=== PATIENT | female | born 1965 | race Caucasian/White ===

== ENCOUNTER 2016-11-30 09:03 | Observation (INO) ==
[2016-11-30] MEDS ORDERED: Ondansetron 4 MG/2 ML VIAL IVP ONE ×2 (09:17→11:13)
[2016-11-30] MEDS ORDERED: 0.9 % Sodium Chloride 1,000 ML IVC ONE (09:17)
[2016-11-30 09:50] LABS: Basophils % 0.2 %; Hematocrit 48.6 % (35.3-44.9); Hemoglobin 16.3 g/dL (11.5-15.4); Immature Granulocytes % 0.3 % (0-4); Lymphocytes # 1.1 K/mcL (0.6-4.6); Mean Corpuscular HGB Conc 33.5 g/dL (31.6-35.5); Mean Corpuscular Hemoglobin 31.2 pg (28.0-33.3); Mean Corpuscular Volume 92.9 fL (83.0-100.0); Monocytes # 0.2 K/mcL (0.0-1.3); Monocytes % 1.6 %; Neutrophils # 11.1 K/mcL (1.6-8.9); Platelet Count 393 K/mcL (140-400); Red Blood Count 5.23 M/mcL (3.82-4.97); Red Cell Distribution Width 14.2 % (11.5-14.5); Segmented Neutrophils % 88.9 %
[2016-11-30 10:51] LABS: Alanine Aminotransferase 44 Units/L (0-55); Albumin 3.4 g/dL (3.5-5.0); Albumin/Globulin Ratio 0.7 (1.1-2.2); Alkaline Phosphatase 117 Units/L (38-126); Amylase 52 Units/L (25-125); Aspartate Amino Transferase 32 Units/L (5-34); BUN/Creatinine Ratio 30 (6-26); Bilirubin,Direct 0.3 mg/dL (0.0-0.5); Bilirubin,Indirect 0.7 mg/dL (0.0-1.2); Blood Urea Nitrogen 25 mg/dL (7-20); Calcium 9.9 mg/dL (8.6-10.8); Carbon Dioxide 29 mEq/L (19-29); Chloride 100 mEq/L (98-109); Glucose 216 mg/dL (70-99); Lipase < 10 Units/L (8-78); Osmolality,Calculated 297 (280-300); Sodium 138 mEq/L (136-145); Total Protein 8.4 g/dL (6.0-8.3); eGFR For African Americans > 60 (> 60); eGFR For Non-African Americans > 60 (> 60)
[2016-11-30 10:52] LABS: Potassium 4.3 mEq/L (3.5-4.5)
[2016-11-30] MEDS ORDERED: Piperacillin/Tazobactam 3.375 GM in D5% in Water (Mini-Bag+) 100 ML IVPB ONE (10:55)
--- NOTE | 2016-11-30 10:59 | Emergency Department Note ---
Disposition Clinical Impression: Enteritis, Nausea vomiting and diarrhea Abdominal pain Qualifiers: Abdominal location: generalized Qualified Code(s): R10.84 - Generalized abdominal pain Acute appendicitis Qualifiers: Acute appendicitis type: unspecified acute appendicitis type Qualified Code(s) : K35.80 - Unspecified acute appendicitis Disposition: Admitted As Inpatient Condition: Good Referrals: NO,PCP [Non-Partnered Physician] - Forms: Work/School Release, ED Satisfaction Letter Time of Disposition: 12:00 Abdominal Pain HPI - General Chief Complaint: ED Abdominal Pain Stated Complaint: abd pain Time Seen by Provider: 11/30/16 09:07 Source: EMS Mode of arrival: ambulatory Limitations: no limitations Nursing Notes Reviewed: Yes Vital Signs Reviewed: Yes - History of Present Illness HPI Narrative: Patient presents emergency room by EMS for evaluation of nausea vomiting and abdominal pain. Symptoms of them present for several days. Finally got so bad that she decided to come the emergency room for evaluation. Pt Subjective Complaint: abdominal pain Onset (ago): day(s) Consistency: constant Location: diffuse Pain Severity: moderate Pain Scale: 8 Quality: stabbing, aching Migration to: no migration Improves with: nothing Worsens with: eating, movement Associated symptoms: Reports: nausea, vomiting, diarrhea, chills Treatments prior to arrival: none - Related Data Previous Rx's Medication Instructions Recorded Omeprazole [PriLOSEC] 40 mg PO DAILY 30 Days 02/19/16 Sucralfate [Carafate] 1 gm PO QIDAC 30 Days 02/19/16 Allergies Allergy/AdvReac Type Severity Reaction Status Date / Time No Known Allergies Allergy Verified 02/20/16 09:28 All systems ED: reviewed and negative except as stated. Constitutional: Reports: chills. Denies: fever, weakness Cardiovascular: Denies: chest pain, palpitations, dyspnea on exertion, orthopnea Respiratory: Denies: dyspnea, wheezes Gastrointestinal: Reports: abdominal pain, nausea, vomiting, diarrhea. Denies: constipation Genitourinary: Denies: dysuria, frequency Musculoskeletal: Denies: back pain, neck pain Neurological: Denies: headache Abdominal Pain PMH - Past Medical History Medical history: Reports: cancer, other Female Surgical History: Reports: splenectomy, other Psychiatric history: Reports: anxiety, bipolar, depression - Social History Smoking status: Former smoker Alcohol use: Reports: none Drug use: Reports: none Physical Exam - General Limitations: no limitations General appearance: alert - Head Head exam: atraumatic, normocephalic, normal inspection - Neck Neck exam: Present: normal inspection, full ROM, trachea midline. Absent: tenderness - Chest Chest inspection: Present: normal inspection, symmetric chest wall rise. Absent : tenderness - Respiratory Respiratory exam: Present: normal lung sounds bilaterally - Cardiovascular Cardiovascular exam: Present: regular rate, normal rhythm, normal heart sounds - Abdominal Exam Abdominal exam: Present: soft, tenderness, normal bowel sounds. Absent: distention, guarding, rebound, rigidity, Sawant's sign, Rovsing's sign, tenderness at McBurney's Point - Extremities Exam Extremities exam: Present: normal inspection, full ROM, normal capillary refill. Absent: tenderness - Back Exam Back exam: Present: normal inspection - Neurological Exam Neurological exam: Present: alert, oriented X3, CN II-XII intact, normal gait - Skin Skin exam: Present: warm, dry, intact, normal color Course Course Narrative: Patient seen and examined the time of arrival. See history of present illness. 51-year-old female presents to emergency room by EMS for evaluation of abdominal pain. She has had nausea vomiting and discomfort in her abdomen for 3 days. She denies any changes in her medications or trauma. She denies fevers but has had intermittent chills. She denies any sick contacts or travel outside the country. She denies any blood in her stool or in her urine. Vital signs reviewed and are stable on presentation patient is afebrile. On evaluation patient has her knees pulled up to her chest bed. She answers questions appropriately. She takes pain medication home secondary to back pain and chest wall pain from lung cancer previously in the past. Patient denies any other specific medical history. On my physical exam pupils are equal round reactive to light. Extraocular muscles are intact oropharynx is patent trachea is midline. Patient has clear lungs heart that is regular abdomen is soft but tenderness noted diffusely. Main area of guarding is in the upper epigastrium and then in the lower suprapubic region of the abdomen. Patient denies any burning with urination or blood in her urine. Patient says that she has had intermittent abdominal pain in the past but does not know why. She has not had any abdominal surgeries except for splenectomy but that was done in 1990. Patient has normal-appearing extremities pulses are intact. On evaluation patient is concerning [place] abdominal pathology including pancreatitis gallbladder related issues or abdominal related pathology including inflammation appendicitis or diverticulitis. Patient had CT imaging of the abdomen urinalysis as well as fluids nausea medication pain to be controlled. We will also evaluate the labs here in the emergency room addressing liver function and kidney function. Patient understands this plan she is resting in the bed at this time we will continue to monitor treatment course is completed - Reevaluation(s) Reevaluation #1: Patient found by CT scan to have what appears to be enteritis with possible distal tip appendicitis. She does have a mild white blood cell count but has been having episodes of emesis. Otherwise no other significant lab abnormalities noted at this time. Her urinalysis is still pending. Fluids and pain medication to be provided. Consultation placed to the on-call surgeon based on the CT imaging results. I discussed the findings with Dr. Mena. We reviewed the patient's presentation symptoms and medical intervention. He will come to evaluate the patient in the emergency room to determine disposition. Otherwise no other recommendations at this time. I will continue to monitor here and control pain and provide fluids as needed. Patient is otherwise resting in the bed at this time with disposition to be determined once evaluation is completed. Time: 11:16 Reevaluation #2: Surgeon at the bedside for evaluation. Recommend hospital admission for IV antibiotics and pain control nonsurgical case at this time. He will follow along as needed. Hospitalist paged at this time for admission process.. Detailed review the presentation symptoms and medical intervention were discussed with the hospitalist Dr. Cat. No other recommendations from them at this time. Patient will follow hospital for symptom control it appears to be inflammatory enteritis and uncontrollable nausea vomiting abdominal pain. We will continue to monitor here in the emergency room and to the admission process is completed Time: 12:00 Vital Signs Temperature 98.6 F 11/30/16 09:04 Pulse Rate 62 11/30/16 09:04 Respiratory Rate 18 11/30/16 09:04 Blood Pressure 173/99 11/30/16 09:04 O2 Sat by Pulse Oximetry 97 11/30/16 09:04 Temperature 98.6 F 11/30/16 09:04 Pulse Rate 57 11/30/16 11:43 Respiratory Rate 18 11/30/16 11:43 Blood Pressure 156/79 11/30/16 11:43 O2 Sat by Pulse Oximetry 98 11/30/16 11:43 Oxygen Delivery Oxygen Delivery Room Air Abdominal Pain - MDM Narrative Medical decision making narrative: Abdominal pain, enteritis, possible appendicitis, nausea vomiting diarrhea - Medical Records Medical records reviewed: Yes I reviewed the patient's medical records. - Lab Data Lab results reviewed: Yes I reviewed the patient's lab results. Result diagrams: 11/30/16 09:37 11/30/16 10:27 Lab Results 11/30/16 11/30/16 11/30/16 Range/Units 09:37 09:37 09:37 WBC 12.5 H (4.3-11.1) K/mcL RBC 5.23 H (3.82-4.97) M/mcL Hgb 16.3 H (11.5-15.4) g/dL Hct 48.6 H (35.3-44.9) % MCV 92.9 (83.0-100.0) fL MCH 31.2 (28.0-33.3) pg MCHC 33.5 (31.6-35.5) g/dL RDW 14.2 (11.5-14.5) % Plt Count 393 (140-400) K/mcL MPV 10.0 (9.4-12.4) fL Immature Gran % 0.3 (0-4) % Seg Neutrophils % 88.9 % Lymphocytes % 9.0 % Monocytes % 1.6 % Eosinophils % 0.0 % Basophils % 0.2 % Neutrophils # 11.1 H (1.6-8.9) K/mcL Lymphocytes # 1.1 (0.6-4.6) K/mcL Monocytes # 0.2 (0.0-1.3) K/mcL Eosinophils # 0.0 (0.0-0.6) K/mcL Basophils # 0.0 (0.0-0.2) K/mcL Sodium (136-145) mEq/L Potassium (3.5-4.5) mEq/L Chloride (98-109) mEq/L Carbon Dioxide (19-29) mEq/L BUN (7-20) mg/dL Creatinine (0.57-1.11) mg/dL Est GFR ( Amer) (> 60) Est GFR (Non-Af Amer) (> 60) BUN/Creatinine Ratio (6-26) Glucose (70-99) mg/dL Calculated Osmolality (280-300) Calcium (8.6-10.8) mg/dL Total Bilirubin (0.2-1.2) mg/dL Direct Bilirubin (0.0-0.5) mg/dL Indirect Bilirubin (0.0-1.2) mg/dL AST (5-34) Units/L ALT (0-55) Units/L Alkaline Phosphatase (38-126) Units/L Troponin I 0.01 (0-0.03) ng/mL Serum Total Protein (6.0-8.3) g/dL Albumin (3.5-5.0) g/dL Globulin (2.4-3.5) g/dL Albumin/Globulin Ratio (1.1-2.2) Amylase (25-125) Units/L Lipase (8-78) Units/L Specimen Rejected Hemolyzed 11/30/16 Range/Units 10:27 WBC (4.3-11.1) K/mcL RBC (3.82-4.97) M/mcL Hgb (11.5-15.4) g/dL Hct (35.3-44.9) % MCV (83.0-100.0) fL MCH (28.0-33.3) pg MCHC (31.6-35.5) g/dL RDW (11.5-14.5) % Plt Count (140-400) K/mcL MPV (9.4-12.4) fL Immature Gran % (0-4) % Seg Neutrophils % % Lymphocytes % % Monocytes % % Eosinophils % % Basophils % % Neutrophils # (1.6-8.9) K/mcL Lymphocytes # (0.6-4.6) K/mcL Monocytes # (0.0-1.3) K/mcL Eosinophils # (0.0-0.6) K/mcL Basophils # (0.0-0.2) K/mcL Sodium 138 (136-145) mEq/L Potassium 4.3 (3.5-4.5) mEq/L Chloride 100 (98-109) mEq/L Carbon Dioxide 29 (19-29) mEq/L BUN 25 H (7-20) mg/dL Creatinine 0.84 (0.57-1.11) mg/dL Est GFR ( Amer) > 60 (> 60) Est GFR (Non-Af Amer) > 60 (> 60) BUN/Creatinine Ratio 30 H (6-26) Glucose 216 H (70-99) mg/dL Calculated Osmolality 297 (280-300) Calcium 9.9 (8.6-10.8) mg/dL Total Bilirubin 1.0 (0.2-1.2) mg/dL Direct Bilirubin 0.3 (0.0-0.5) mg/dL Indirect Bilirubin 0.7 (0.0-1.2) mg/dL AST 32 (5-34) Units/L ALT 44 (0-55) Units/L Alkaline Phosphatase 117 (38-126) Units/L Troponin I (0-0.03) ng/mL Serum Total Protein 8.4 H (6.0-8.3) g/dL Albumin 3.4 L (3.5-5.0) g/dL Globulin 5.0 H (2.4-3.5) g/dL Albumin/Globulin Ratio 0.7 L (1.1-2.2) Amylase 52 (25-125) Units/L Lipase < 10 (8-78) Units/L Specimen Rejected - Radiology Data Radiology results reviewed: Yes I reviewed the patient's radiology results. CT imaging is concerning for enteritis as well as possible appendicitis
[2016-11-30] MEDS ORDERED: *HR* HYDROmorphone (PF) 1 MG/ML SYRINGE IVP ONE ×2 (11:13→13:12)
[2016-11-30] MEDS ORDERED: *HR* Promethazine 25 MG/ML VIAL IVP PRN (13:11)
[2016-11-30] MEDS ORDERED: Ondansetron 4 MG/2 ML VIAL IVP PRN (13:11)
[2016-11-30] MEDS ORDERED: Naloxone 0.4 MG/ML INJ IVP PRN (13:11)
[2016-11-30] MEDS ORDERED: *HR* HYDROmorphone (PF) 1 MG/ML SYRINGE ONE (13:13)
[2016-11-30] MEDS ORDERED: *HR* LORazepam 2 MG/ML VIAL IVP PRN (13:16)
--- NOTE | 2016-11-30 13:22 | Internal Med History&Physical ---
Date of Encounter: 11/30/16 Time of Encounter: 13:19 Assessment and Plan (1) Abdominal pain Current visit: Yes Status: Acute Patient reporting 3 day history of abdominal pain, nausea and vomiting. CT of abdomen showed enteritis. Dr. Mena was consulted, examined the patient and reviewed images and felt this was consistent with enteritis. Dilaudid for abdominal pain Narcan PRN for respiratory depression NPO except ice chips Qualifiers: Abdominal location: generalized Qualified Code(s): R10.84 - Generalized abdominal pain (2) Enteritis Current visit: Yes Status: Acute Patient reporting 3 day history of abdominal pain, nausea and vomiting. CT of abdomen showed enteritis. Dr. Mena was consulted, examined the patient and reviewed images and felt this was consistent with enteritis. NPO except ice chips IV fluids 0.9NS at 125mL/hr Cipro and Flagyl Zofran and phenergan for nausea and vomiting Dilaudid for abdominal pain consider endoscopy as an outpatient to evaluate for inflammatory bowel disease (3) Nausea vomiting and diarrhea Current visit: Yes Status: Acute Patient reporting 3 day history of abdominal pain, nausea and vomiting. CT of abdomen showed enteritis. Dr. Mena was consulted, examined the patient and reviewed images and felt this was consistent with enteritis. IV fluids 0.9NS at 125mL/hr Zofran and phenergan for nausea and vomiting (4) History of lung cancer Current visit: Yes Status: Acute Patient with history of lung cancer s/p right lobectomy, chemo and radiation. Patient follows regularly with Dr. Blanchard at the [facility]. (5) Anxiety Current visit: Yes Status: Acute Ativan 1mg IVP TID (6) Smoker Current visit: Yes Status: Acute Patient continues to smoke 1PPD despite previous lung cancer. Encouraged smoking cessation. Smoking cessation education and nicotine patch ordered. (7) DVT prophylaxis Current visit: Yes Status: Acute anti-embolic stockings Lovenox 40mg SQ daily Internal Medicine - H&P: HPI Chief complaint: abd pain, N/V Admitted From: Emergency Dept Plans for Post Hospital Care: Home History of present illness: Ms. Hoskins is a 51 year old female with history of lung cancer status post lobectomy chemoradiation on remission, seizure disorder, no longer on treatment , anxiety, bipolar disorder presented to the emergency department today with 3 day history of abdominal pain nausea vomiting diarrhea. Patient reports symptoms started suddenly 3 days ago and have not improved. She reports she is unable to keep anything down. Vomiting is nonbloody, diarrhea is nonbloody. Abdominal pain is described as constant severe in the right lower quadrant, worse with palpation and vomiting. She also describes chills and sweats as well as body aches. She denies any headache, lightheadedness, chest pain, palpitations, shortness breath or coughing. Evaluation emergency department revealed mildly elevated white blood cell count of 12.5. Chest x-ray showed no acute abnormality. CT of the abdomen showed enteritis with possible distal tip appendicitis. Dr. Holliday of surgery was consulted, who felt this is nonsurgical at this time and recommended antibiotics and IV fluids and he will continue to follow. On exam, patient alert and oriented, mildly distressed, tearful, complaining of nausea and abdominal pain. Lungs are clear bilaterally to auscultation heart is regular rate and rhythm. Abdomen is diffusely tender more so in the right lower quadrant rebound tenderness. Past Med Surg Social Fam HX - Past Medical History Medical history: cancer (lung cancer s/p right lobectomy, chemo and radiation), seizures, other Psychiatric history: anxiety, bipolar, depression - Past Surgical History Surgical History: , cancer surgery (right lobectomy), splenectomy - Social History Smoking Status: Current every day smoker Packs per day: 1 Smokeless Tobacco Status: No Alcohol use: none Drug use: none - Family History Father Living Status: Age at : 47 Cause of : Cirrhosis Mother Living Status: Age at : 72 Hx Family Cancer: Yes Hx Family Endocrine Disorder: Yes (diabetes) Internal Medicine - H&P: Meds ALPRAZolam [Xanax 1 MG Tablet] 1 mg PO BID PRN 11/30/16 [History] Gabapentin [Neurontin] 800 mg PO TID 11/30/16 [History] Oxycodone HCl/Acetaminophen [Percocet 7.5-325 mg Tablet] 1 tab PO TID PRN [History] Quetiapine Fumarate [Seroquel] 200 mg PO HS 11/30/16 [History] Allergies No Known Allergies Allergy (Verified 02/20/16 09:28) All Systems PM: A 10-system review of systems was performed and is negative for pertinent findings except as documented above in the HPI. - Constitutional Constitutional: anorexia, chills, malaise, night sweats, no fever(s) - EENT Eyes: no change in vision, no discharge, no pain, no photophobia Ears: no ear discharge, no ear pain, no tinnitus Nose, mouth and throat: no dysphagia, no nasal discharge, no neck pain, no sore throat - Cardiovascular Cardiovascular ROS IM: no chest pain, no diaphoresis, no dyspnea, no lightheadedness, no palpitations, no syncope - Respiratory Respiratory: no cough, no dyspnea, no wheezing, no excessive phlegm production - Gastrointestinal Gastrointestinal: abdominal pain, diarrhea, nausea, vomiting, no hematemesis, no hematochezia, no melena - Genitourinary Genitourinary: no change in urinary stream, no dysuria, no flank pain, no hematuria - Musculoskeletal Musculoskeletal ROS IM: no numbness, no tingling - Integumentary Integumentary IM: no rash, no unusual bruising - Neurological Neurological ROS: no confusion, no convulsions, no focal weakness, no numbness, no tingling, no tremor(s) - Hematologic/Lymphatic Hematologic/Lymphatic: no easy bruising - Constitutional Vitals: Temp Pulse Resp BP Pulse Ox 98.6 F 57 18 142/83 98 11/30/16 09:04 11/30/16 11:43 11/30/16 12:44 11/30/16 12:44 11/30/16 11:43 General appearance: Present: mild distress, A&O X 3 - Head Head exam: Present: atraumatic, normocephalic - Eye Eye exam: Present: PERRL, conjuntiva pink, sclera anicteric Pupils: Present: PERRL - ENT ENT exam: Present: mucous membranes dry - Neck Neck exam general surgery: Present: supple, trachea midline. Absent: lymphadenopathy - Respiratory Respiratory exam: Present: CTAB. Absent: accessory muscle use, rales, rhonchi, wheezes - Cardiovascular Cardiovascular exam: Present: RRR, +S1, +S2. Absent: diastolic murmur, gallop, rubs, systolic murmur - GI/Abdominal GI/Abdominal exam: Present: normal bowel sounds, soft, tenderness, no peritoneal signs. Absent: distended - Extremities Exam Extremities exam: Present: warm, radial pulses palpable and symetrical. Absent : calf tenderness, cyanotic, pedal edema - Neurological Exam Neurological exam: Present: CN II-XII intact, oriented X3, no focal deficits. Absent: facial droop, speech deficit - Skin Skin exam: Present: dry, intact Internal Med - H&P Results - Labs CBC & Chem 7: 11/30/16 09:37 11/30/16 10:27 Labs: All Lab Results (24 Hours) 11/30/16 11/30/16 11/30/16 Range/Units 09:37 09:37 09:37 WBC 12.5 H (4.3-11.1) K/mcL RBC 5.23 H (3.82-4.97) M/mcL Hgb 16.3 H (11.5-15.4) g/dL Hct 48.6 H (35.3-44.9) % MCV 92.9 (83.0-100.0) fL MCH 31.2 (28.0-33.3) pg MCHC 33.5 (31.6-35.5) g/dL RDW 14.2 (11.5-14.5) % Plt Count 393 (140-400) K/mcL MPV 10.0 (9.4-12.4) fL Immature Gran % 0.3 (0-4) % Seg Neutrophils % 88.9 % Lymphocytes % 9.0 % Monocytes % 1.6 % Eosinophils % 0.0 % Basophils % 0.2 % Neutrophils # 11.1 H (1.6-8.9) K/mcL Lymphocytes # 1.1 (0.6-4.6) K/mcL Monocytes # 0.2 (0.0-1.3) K/mcL Eosinophils # 0.0 (0.0-0.6) K/mcL Basophils # 0.0 (0.0-0.2) K/mcL Sodium (136-145) mEq/L Potassium (3.5-4.5) mEq/L Chloride (98-109) mEq/L Carbon Dioxide (19-29) mEq/L BUN (7-20) mg/dL Creatinine (0.57-1.11) mg/dL Est GFR ( Amer) (> 60) Est GFR (Non-Af Amer) (> 60) BUN/Creatinine Ratio (6-26) Glucose (70-99) mg/dL Calculated Osmolality (280-300) Calcium (8.6-10.8) mg/dL Total Bilirubin (0.2-1.2) mg/dL Direct Bilirubin (0.0-0.5) mg/dL Indirect Bilirubin (0.0-1.2) mg/dL AST (5-34) Units/L ALT (0-55) Units/L Alkaline Phosphatase (38-126) Units/L Troponin I 0.01 (0-0.03) ng/mL Serum Total Protein (6.0-8.3) g/dL Albumin (3.5-5.0) g/dL Globulin (2.4-3.5) g/dL Albumin/Globulin Ratio (1.1-2.2) Amylase (25-125) Units/L Lipase (8-78) Units/L Specimen Rejected Hemolyzed 11/30/16 Range/Units 10:27 WBC (4.3-11.1) K/mcL RBC (3.82-4.97) M/mcL Hgb (11.5-15.4) g/dL Hct (35.3-44.9) % MCV (83.0-100.0) fL MCH (28.0-33.3) pg MCHC (31.6-35.5) g/dL RDW (11.5-14.5) % Plt Count (140-400) K/mcL MPV (9.4-12.4) fL Immature Gran % (0-4) % Seg Neutrophils % % Lymphocytes % % Monocytes % % Eosinophils % % Basophils % % Neutrophils # (1.6-8.9) K/mcL Lymphocytes # (0.6-4.6) K/mcL Monocytes # (0.0-1.3) K/mcL Eosinophils # (0.0-0.6) K/mcL Basophils # (0.0-0.2) K/mcL Sodium 138 (136-145) mEq/L Potassium 4.3 (3.5-4.5) mEq/L Chloride 100 (98-109) mEq/L Carbon Dioxide 29 (19-29) mEq/L BUN 25 H (7-20) mg/dL Creatinine 0.84 (0.57-1.11) mg/dL Est GFR ( Amer) > 60 (> 60) Est GFR (Non-Af Amer) > 60 (> 60) BUN/Creatinine Ratio 30 H (6-26) Glucose 216 H (70-99) mg/dL Calculated Osmolality 297 (280-300) Calcium 9.9 (8.6-10.8) mg/dL Total Bilirubin 1.0 (0.2-1.2) mg/dL Direct Bilirubin 0.3 (0.0-0.5) mg/dL Indirect Bilirubin 0.7 (0.0-1.2) mg/dL AST 32 (5-34) Units/L ALT 44 (0-55) Units/L Alkaline Phosphatase 117 (38-126) Units/L Troponin I (0-0.03) ng/mL Serum Total Protein 8.4 H (6.0-8.3) g/dL Albumin 3.4 L (3.5-5.0) g/dL Globulin 5.0 H (2.4-3.5) g/dL Albumin/Globulin Ratio 0.7 L (1.1-2.2) Amylase 52 (25-125) Units/L Lipase < 10 (8-78) Units/L Specimen Rejected - Diagnostic Studies Chest x-ray Additional comments: Chest X-Ray 11/30/16 09:20 IMPRESSION: Right hilar opacity may represent parenchymal scarring. However recurrent neoplasm could have a similar appearance. Nonemergent chest CT suggested further evaluation. Otherwise, no acute cardiopulmonary abnormality. D/ / Callum Vasquez MD / Callum Vasquez MD Interpreting Provider: Callum Vasquez MD CT scan - abdomen Additional comments: Abdomen/Pelvis CT 11/30/16 09:19 IMPRESSION: 1. New since the prior examination is mild mid to distal jejunal changes in the midline lower abdomen and pelvis which may relate to possible enteritis. No evidence of obstruction or perforation. 2. The distal aspect of the appendix appears to be fluid opacified and a possible tip appendicitis cannot be excluded. 3. No abscess or evidence of perforation. D/ / 11/30/2016 10:53:56 Tj Arrington MD / [email or web address] Interpreting Provider: Tj Arrington MD
--- NOTE | 2016-11-30 13:27 | General Surgery Consult Note ---
Date of Encounter: 11/30/16 Time of Encounter: 12:10 History of Present Illness Reason for consult: abdominal pain (nausea, vomiting) Requesting physician: Kenney Higuera History of present illness: 51-year-old female, referred to surgical services after presenting to the emergency department with approximately a 3 day history of abdominal pain, nausea, and vomiting. Patient describes diffuse abdominal pain which to my examination was concentrated in the epigastric and supraumbilical region. White count was 12.5 with hemoglobin of 16.3, hematocrit 48.6. CT of the abdomen and pelvis notable for prior splenectomy, left kidney with an exophytic cyst inferior pole showing simple fluid attenuation; several loops of small bowel in the mid lower abdomen extending into the pelvis showing mild wall thickening and fluid opacification. Adjacent mesenteric edema and trace ascites is also described. The appendix is identified with a 2 mm appendicolith described at its base. The proximal and mid aspect demonstrated normal appearance however the distal aspect demonstrated some fluid opacification prompting concern for acute appendicitis. It is for this reason that a surgical consultation was placed. The CT was personally reviewed with [facility]. The results of my review include: normal appearing appendix without evidence of appendicitis, significant inflammation of the mid to distal jejunum consistent with enteritis. The family in attendance indicates that the patient had a similar episode of abdominal pain a week or 2 ago that resolved spontaneously. The patient has chronic diarrhea. 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 Medications: The patient is a poor historian The patient describes pain on Percocet, gabapentin The patient denies any medications for, or history of hypertension, diabetes , pulmonary, cardiac, or renal disease Previous prescriptions include omeprazole and sucralfate both of these dated, February 2016. Allergies: No known drug allergies Social history: Patient admits to 1 pack per day for 40 years, she quit approximately 1 month ago; patient denies any alcohol or illicit drug use Physical examination: 51-year-old female, in acute distress secondary to abdominal pain not relieved by medications provided by ER personnel. She will appears older than her stated age. The patient is afebrile, 98.6, pulse 57 and 62, respirations 18 and nonlabored, blood pressure 142/83 but on presentation her blood pressure was significantly higher at 173/99 (likely due to pain) SPO2 on room air 97 and 98% Lungs: Slightly diminished breath sounds on the right side. Left lung clear. Diminished inspiratory effort secondary to pain on inspiration Cardiac: Regular rate, no appreciable murmurs Abdomen: Soft, nondistended with tenderness most pronounced centrally. Minimal discomfort in bilateral lower quadrants. No discernible masses. Bowel sounds absent during my exam. Extremities: No obvious clubbing cyanosis or edema Laboratories: White count 12.5, hemoglobin 16.3, hematocrit 48.6; platelet count 393,000. Neutrophils elevated 11.1% Electrolytes within normal limits, BUN elevated to 25, creatinine 0.84, estimated GFR greater than 60. LFTs within normal limits. Impression: 51-year-old female with several day history of bowel pain, nausea, and vomiting. CT findings of acute enteritis, possible small bowel inflammatory disease such as Crohn's. The patient is acutely dehydrated. No evidence of acute appendicitis at this time. The patient has a history of lung cancer History of unspecified blood disorder for which splenectomy was completed in the remote past. If patient fails to respond to therapy - may benefit from transfer to [facility] Recommendations: Nothing by mouth, IV fluids with aggressive rehydration Antibiotic such a Cipro and Flagyl Serial abdominal exams and repeat blood work in the a.m. Address any electrolyte abnormalities that may develop with this therapy Unfortunately, gastroenterology is not available at [facility] this week; Endoscopy/enteroscopy with biopsies when patient status stablilized. Past Med Surg Social Fam HX - Past Medical History Medical history: cancer, other Psychiatric history: anxiety, bipolar, depression - Social History Smoking Status: Former smoker Smokeless Tobacco Status: No Alcohol use: none Drug use: none Medications and Allergies ALPRAZolam [Xanax 1 MG Tablet] 1 mg PO BID PRN 11/30/16 [History] Gabapentin [Neurontin] 800 mg PO TID 11/30/16 [History] Oxycodone HCl/Acetaminophen [Percocet 7.5-325 mg Tablet] 1 tab PO TID PRN [History] Quetiapine Fumarate [Seroquel] 200 mg PO HS 11/30/16 [History] Allergies No Known Allergies Allergy (Verified 02/20/16 09:28) Review of Systems All systems PM: A 10-system review of systems was performed and is negative for pertinent findings except as documented above in the HPI. General Surgery Exam Initial Vital Signs Temp Pulse Resp BP Pulse Ox 98.6 F 62 18 173/99 97 11/30/16 09:04 11/30/16 09:04 11/30/16 09:04 11/30/16 09:04 11/30/16 09:04 Exam Initial Vital Signs Temp Pulse Resp BP Pulse Ox 98.6 F 62 18 173/99 97 11/30/16 09:04 11/30/16 09:04 11/30/16 09:04 11/30/16 09:04 11/30/16 09:04 Results - Labs 11/30/16 09:37 11/30/16 10:27 Abnormal lab results WBC 12.5 K/mcL (4.3-11.1) H 11/30/16 09:37 RBC 5.23 M/mcL (3.82-4.97) H 11/30/16 09:37 Hgb 16.3 g/dL (11.5-15.4) H 11/30/16 09:37 Hct 48.6 % (35.3-44.9) H 11/30/16 09:37 Neutrophils # 11.1 K/mcL (1.6-8.9) H 11/30/16 09:37 BUN 25 mg/dL (7-20) H 11/30/16 10:27 BUN/Creatinine Ratio 30 (6-26) H 11/30/16 10:27 Glucose 216 mg/dL (70-99) H 11/30/16 10:27 Serum Total Protein 8.4 g/dL (6.0-8.3) H 11/30/16 10:27 Albumin 3.4 g/dL (3.5-5.0) L 11/30/16 10:27 Globulin 5.0 g/dL (2.4-3.5) H 11/30/16 10:27 Albumin/Globulin Ratio 0.7 (1.1-2.2) L 11/30/16 10:27 All other labs normal. Consult Discharge Plan - Plan Referrals: Deanne Galaviz, SYLVIA [Primary Care Provider] - 12/09/16 1:15 pm
[2016-11-30 13:42] LABS: Hemoglobin A1C 5.5 %
[2016-11-30] MEDS: *HR* HYDROmorphone (PF) 1 MG/ML SYRINGE IVP PRN ×4 (14:30→23:50)
[2016-11-30] MEDS: 0.9 % Sodium Chloride 1,000 ML IVC SCH ×2 (14:33→23:20)
[2016-11-30] MEDS: MetroNIDAZOLE 500 MG/100 ML 500 MG/100 ML BAG IVPB SCH ×2 (14:35→23:24)
--- NOTE | 2016-11-30 15:45 | Event Note ---
Date of Encounter: 11/30/16 Time of Encounter: 14:30 Patient evaluated along with nurse practitioner. Agree with the detailed history, assessment and plan according to nurse practitioners H&P. 51-year-old female with history of lung cancer status post surgery and chemoradiation, seizure disorder and anxiety, presents with complaints of nausea , vomiting, diarrhea and right lower abdominal pain for the last 3 days. She reports having had a similar abdominal pain about a month ago, when EMS was called but she refuses to come to the emergency room and received some IV hydration with improvement in symptoms. Her current symptoms have been constant , relieved with IV Dilaudid. Patient seen and examined at bedside. Noted to be in mild distress due to abdominal pain. Chest-S1, S2 heard. Lungs are clear to auscultation anterolaterally. Abdomen-soft, nondistended, mild tenderness in right upper quadrant, no guarding or rigidity Reviewed labs, no acute abnormality CT abdomen/pelvis shows changes suggestive of inflammation of tail of the appendix, enteritis. Acute gastroenteritis-probably viral. Continue supportive care with bowel rest , IV hydration, pain control with when necessary IV Dilaudid. Check stool GI panel and stool WBC. IV antibiotics-ciprofloxacin and Flagyl. CT changes suggestive of appendicitis-surgery consult appreciated. Recommend conservative management for now, less likely inflammation of the appendix.
[2016-11-30 17:11] LABS: Bilirubin,Urine Negative (Negative); Blood,Urine Negative (Negative); Clarity,Urine Clear (Clear); Color,Urine Yellow (Yellow); Glucose,Urine (UA) Normal (Normal); Ketones,Urine Negative (Negative); Leukocyte Esterase,Urine Negative (Negative); Nitrite,Urine Negative (Negative); PH,Urine 6.5 pH Units (5.0-8.0); Protein,Urine 30 mg/dL (Neg-Trace); Specific Gravity,Urine 1.025 (1.010-1.025); Urobilinogen,Urine Normal (Normal)
[2016-11-30] MEDS: Pantoprazole 40 MG VIAL IVP SCH (17:24)
[2016-11-30 17:27] LABS: Mucus,Urine Few (Few); RBC,Urine 0-3 per hpf (0-3); Squamous Epithelial Cell,Urine Moderate per lpf (None-Few); WBC,Urine 0-3 per hpf (0-3)
[2016-11-30 17:28] LABS: Bacteria,Urine Few per hpf (None-Few)
[2016-11-30] MEDS: Nicotine 21 MG PATCH.TD24 TD SCH (17:37)
[2016-12-01] MEDS: *HR* HYDROmorphone (PF) 1 MG/ML SYRINGE IVP PRN ×4 (02:54→12:09)
[2016-12-01 05:04] LABS: Basophils % 0.2 %; Eosinophils # 0.2 K/mcL (0.0-0.6); Eosinophils % 1.8 %; Hematocrit 36.6 % (35.3-44.9); Immature Granulocytes % 0.4 % (0-4); Lymphocytes # 2.7 K/mcL (0.6-4.6); Lymphocytes % 19.7 %; Mean Corpuscular HGB Conc 32.8 g/dL (31.6-35.5); Mean Corpuscular Hemoglobin 31.5 pg (28.0-33.3); Mean Corpuscular Volume 96.1 fL (83.0-100.0); Mean Platelet Volume 10.6 fL (9.4-12.4); Monocytes # 1.3 K/mcL (0.0-1.3); Monocytes % 9.3 %; Neutrophils # 9.3 K/mcL (1.6-8.9); Platelet Count 310 K/mcL (140-400); Red Blood Count 3.81 M/mcL (3.82-4.97); Red Cell Distribution Width 14.6 % (11.5-14.5); Segmented Neutrophils % 68.6 %
[2016-12-01 05:18] LABS: BUN/Creatinine Ratio 35 (6-26); Blood Urea Nitrogen 23 mg/dL (7-20); Calcium 8.6 mg/dL (8.6-10.8); Carbon Dioxide 28 mEq/L (19-29); Chloride 110 mEq/L (98-109); Glucose 99 mg/dL (70-99); Osmolality,Calculated 298 (280-300); Potassium 3.7 mEq/L (3.5-4.5); Sodium 142 mEq/L (136-145); eGFR For African Americans > 60 (> 60); eGFR For Non-African Americans > 60 (> 60)
[2016-12-01] MEDS ORDERED: *HR* Enoxaparin 40 MG/0.4 ML SYRINGE SQ SCH (06:00)
[2016-12-01] MEDS: 0.9 % Sodium Chloride 1,000 ML IVC SCH ×2 (07:30→09:05)
[2016-12-01] MEDS: Pantoprazole 40 MG VIAL IVP SCH (07:31)
[2016-12-01] MEDS: MetroNIDAZOLE 500 MG/100 ML 500 MG/100 ML BAG IVPB SCH (07:32)
[2016-12-01] MEDS: Nicotine 21 MG PATCH.TD24 TD SCH (07:32)
[2016-12-01 10:57] VITALS: BP 112/61
--- NOTE | 2016-12-01 13:33 | Discharge Summary ---
Date of Encounter: 12/01/16 Time of Encounter: 13:24 - Discharge Diagnosis (1) Enteritis Priority: Primary Status: Acute (2) Abdominal pain Priority: Secondary Status: Acute Qualifiers: Abdominal location: generalized Qualified Code(s): R10.84 - Generalized abdominal pain (3) Anxiety Priority: Secondary Status: Acute (4) History of lung cancer Priority: Secondary Status: Acute (5) Nausea vomiting and diarrhea Priority: Secondary Status: Resolved (6) Smoker Priority: Secondary Status: Acute - Discharge Medications Prescriptions: Ciprofloxacin [Cipro] 500 mg PO BID #10 tablet metroNIDAZOLE [Flagyl] 500 mg PO TID #15 tablet Home Medications: ALPRAZolam [Xanax 1 MG Tablet] 1 mg PO BID PRN 11/30/16 [History] Gabapentin [Neurontin] 800 mg PO TID 11/30/16 [History] Oxycodone HCl/Acetaminophen [Percocet 7.5-325 mg Tablet] 1 tab PO TID PRN [History] Quetiapine Fumarate [Seroquel] 200 mg PO HS 11/30/16 [History] Ciprofloxacin [Cipro] 500 mg PO BID #10 tablet 12/01/16 [Rx] metroNIDAZOLE [Flagyl] 500 mg PO TID #15 tablet 12/01/16 [Rx] Allergies/Adverse Reactions: Allergies No Known Allergies Allergy (Verified 02/20/16 09:28) Date of admission: 11/30/16 12:33 Primary care physician: Deanne Galaviz CNP Consults: 11/30/16 11:58 Consult to Surgery [CONS] Stat Consulting Provider: Surgery [facility] Reason for Consult: abdominal pain Call Completed: Yes Discharging clinician: Pavan Bundy Anticipated date of discharge: 12/01/16 - Patient Status Disposition: Home, Self-Care Condition: Good Functional capacity at discharge: independent ambulation Overall status at discharge: patient is back to baseline - Discharge Instructions Instructions: Acute Abdominal Pain (DC) Follow Up With: Deanne Galaviz CNP [Primary Care Provider] - 12/09/16 1:15 pm Additional Instructions: Follow-up with gastroenterology as outpatient for colonoscopy in 1-2 weeks - Diet and Activity Activity: increase activity as tolerated Diet: low fat, low cholesterol, low salt diet Hospital course: Ms. Hoskins is a 51 year old female patient who has a history of lung cancer, seizure disorder, anxiety was hospitalized here with acute enteritis. Initial CT scan of the abdomen and pelvis suggested possible appendicitis. Surgery was consulted but the patient did not have any clinical features suggestive of appendicitis. She was treated with IV antibiotics and antiemetics. Her symptoms have significantly improved since then. She is tolerating oral diet well today without any nausea or vomiting or diarrhea. She has discharge. She will complete a short course of oral antibiotics to treat any superimposed bacterial infection as she did have a slightly elevated WBC count. She will be referred to GI to undergo colonoscopy as outpatient to rule out any inflammatory bowel disorders. - Time Spent with Patient Total time spent providing and/or coordinating discharge services: Greater than 30 minutes (35 min) - Constitutional Vitals: Temp Pulse Resp BP Pulse Ox 97.6 F 62 16 112/61 97 12/01/16 10:56 12/01/16 10:56 12/01/16 10:56 12/01/16 10:56 12/01/16 10:56 General appearance: Present: mild distress, A&O X 3 - Neck Neck exam general surgery: Present: supple, trachea midline. Absent: lymphadenopathy - Respiratory Respiratory exam: Present: CTAB. Absent: accessory muscle use, rales, rhonchi, wheezes - Cardiovascular Cardiovascular exam: Present: RRR, +S1, +S2. Absent: diastolic murmur, gallop, rubs, systolic murmur - GI/Abdominal GI/Abdominal exam: Present: normal bowel sounds, soft, no peritoneal signs. Absent: distended, tenderness - Extremities Exam Extremities exam: Present: warm, radial pulses palpable and symetrical. Absent : calf tenderness, cyanotic, pedal edema - VTE Documentation of Mechanical Device: Graduated compression elastic hosiery
== END 2016-12-01 15:20 | disposition home or self-care (01) ==
LOC: EMEROO 09:03 → 3ANU 09:03 → SUATTDRO 12:33 → 3ANU 13:27
PROVIDERS: ADMIT Internal Medicine; ATTEND Internal Medicine

== ENCOUNTER 2016-12-01 19:10 | Inpatient (IN) ==
[2016-12-01 20:13] LABS: Bilirubin,Urine Negative (Negative); Blood,Urine Negative (Negative); Clarity,Urine Clear (Clear); Color,Urine Yellow (Yellow); Glucose,Urine (UA) Normal (Normal); Ketones,Urine 15 mg/dL (Negative); Leukocyte Esterase,Urine Trace (Negative); Nitrite,Urine Negative (Negative); Protein,Urine Negative (Neg-Trace); Urobilinogen,Urine Normal (Normal)
[2016-12-01 20:17] LABS: Bacteria,Urine None Seen per hpf (None-Few); Hyaline Casts,Urine None Seen per lpf (None-Few); RBC,Urine 0-3 per hpf (0-3); Squamous Epithelial Cell,Urine Many per lpf (None-Few); WBC,Urine 0-3 per hpf (0-3)
[2016-12-01 20:56] LABS: Basophils % 0.1 %; Eosinophils # 0.3 K/mcL (0.0-0.6); Eosinophils % 1.9 %; Hematocrit 41.7 % (35.3-44.9); Hemoglobin 13.4 g/dL (11.5-15.4); Immature Granulocytes % 0.4 % (0-4); Lymphocytes # 1.8 K/mcL (0.6-4.6); Lymphocytes % 13.1 %; Mean Corpuscular HGB Conc 32.1 g/dL (31.6-35.5); Mean Corpuscular Volume 96.5 fL (83.0-100.0); Mean Platelet Volume 10.5 fL (9.4-12.4); Monocytes # 0.8 K/mcL (0.0-1.3); Monocytes % 5.7 %; Neutrophils # 10.9 K/mcL (1.6-8.9); Platelet Count 320 K/mcL (140-400); Red Blood Count 4.32 M/mcL (3.82-4.97); Red Cell Distribution Width 14.3 % (11.5-14.5); Segmented Neutrophils % 78.8 %
[2016-12-01] MEDS ORDERED: *HR* HYDROmorphone (PF) 1 MG/ML SYRINGE IVP ONE (21:11)
[2016-12-01] MEDS ORDERED: 0.9 % Sodium Chloride 1,000 ML IVC ONE (21:11)
[2016-12-01] MEDS ORDERED: Ondansetron 4 MG/2 ML VIAL IVP ONE ×2 (21:12→22:07)
[2016-12-01] MEDS ORDERED: MetroNIDAZOLE 500 MG/100 ML 500 MG/100 ML BAG IVPB ONE (21:12)
[2016-12-01 21:14] LABS: Alanine Aminotransferase 37 Units/L (0-55); Albumin 3.2 g/dL (3.5-5.0); Albumin/Globulin Ratio 0.8 (1.1-2.2); Alkaline Phosphatase 92 Units/L (38-126); Amylase 79 Units/L (25-125); Aspartate Amino Transferase 31 Units/L (5-34); BUN/Creatinine Ratio 25 (6-26); Bilirubin,Direct 0.3 mg/dL (0.0-0.5); Bilirubin,Indirect 0.3 mg/dL (0.0-1.2); Bilirubin,Total 0.6 mg/dL (0.2-1.2); Blood Urea Nitrogen 18 mg/dL (7-20); Carbon Dioxide 26 mEq/L (19-29); Chloride 105 mEq/L (98-109); Globulin 3.8 g/dL (2.4-3.5); Glucose 132 mg/dL (70-99); Osmolality,Calculated 290 (280-300); Potassium 3.5 mEq/L (3.5-4.5); Sodium 138 mEq/L (136-145); eGFR For African Americans > 60 (> 60); eGFR For Non-African Americans > 60 (> 60)
[2016-12-01 21:16] LABS: Lipase < 10 Units/L (8-78)
--- NOTE | 2016-12-01 21:16 | Emergency Department Note ---
Disposition Clinical Impression: Enteritis Abdominal pain Qualifiers: Abdominal location: right lower quadrant Qualified Code(s): R10.31 - Right lower quadrant pain Nausea and vomiting Qualifiers: Vomiting type: unspecified Vomiting Intractability: non-intractable Qualified Code(s): R11.2 - Nausea with vomiting, unspecified Disposition: Admitted As Inpatient Condition: Fair Referrals: NO,PCP [Non-Partnered Physician] - Forms: Work/School Release, ED Satisfaction Letter Time of Disposition: 22:09 Abdominal Pain HPI - General Chief Complaint: ED Abdominal Pain Stated Complaint: ABD pain N/V Time Seen by Provider: 12/01/16 20:58 Source: patient Mode of arrival: ambulatory Limitations: no limitations Nursing Notes Reviewed: Yes Vital Signs Reviewed: Yes - History of Present Illness HPI Narrative: 51-year-old female present for evaluation of worsening right-sided abdominal pain. Patient was recently admitted and discharged from the hospital for the same. Patient had a complete workup done the day prior. Notes that she has been having chronic intermittent right-sided pain over months. Was admitted for pain control and antibiotics yesterday. States she has not been able to tolerate her by mouth antibiotics Cipro and Flagyl. States the pain has gotten worse. Reports nausea and vomiting. Abdominal pain in the right side without radiation. No chest pain short of breath. Does note fevers. Denies any change in bowel or bladder. Denies history of colonoscopy. Pain Scale: 10 - Related Data Home Medications Medication Instructions Recorded Confirmed ALPRAZolam [Xanax 1 MG Tablet] 1 mg PO BID PRN 11/30/16 12/01/16 Gabapentin [Neurontin] 800 mg PO TID 11/30/16 12/01/16 Oxycodone HCl/Acetaminophen 1 tab PO TID PRN 11/30/16 12/01/16 [Percocet 7.5-325 mg Tablet] Quetiapine Fumarate [Seroquel] 200 mg PO HS 11/30/16 12/01/16 Previous Rx's Medication Instructions Recorded Ciprofloxacin [Cipro] 500 mg PO BID #10 tablet 12/01/16 metroNIDAZOLE [Flagyl] 500 mg PO TID #15 tablet 12/01/16 Allergies Allergy/AdvReac Type Severity Reaction Status Date / Time No Known Allergies Allergy Verified 12/01/16 19:14 All systems ED: reviewed and negative except as stated. Constitutional: Reports: as per HPI, fever Eyes: Reports: as per HPI ENT ED: Reports: as per HPI Cardiovascular: Reports: as per HPI. Denies: chest pain Respiratory: Reports: as per HPI. Denies: cough Gastrointestinal: Reports: as per HPI, abdominal pain, nausea, vomiting. Denies : diarrhea, constipation Genitourinary: Reports: as per HPI Musculoskeletal: Reports: as per HPI Integumentary: Reports: as per HPI Neurological: Reports: as per HPI Psychiatric: Reports: as per HPI Endocrine: Reports: as per HPI Allergic/Immunologic: Reports: as per HPI Abdominal Pain PMH - Past Medical History Medical history: Reports: cancer, seizures, other Female Surgical History: Reports: splenectomy, other Psychiatric history: Reports: anxiety, bipolar, depression - Social History Smoking status: Current every day smoker Alcohol use: Reports: none Drug use: Reports: none Physical Exam - General Limitations: no limitations General appearance: alert, other (Appears uncomfortable) - Head Head exam: atraumatic, normocephalic, normal inspection - Eye Eye exam: Present: normal appearance, EOMI. Absent: scleral icterus - ENT ENT exam: normal exam, mucous membranes moist - Neck Neck exam: Present: normal inspection, trachea midline - Chest Chest inspection: Present: normal inspection - Respiratory Respiratory exam: Present: normal lung sounds bilaterally. Absent: respiratory distress - Cardiovascular Cardiovascular exam: Present: regular rate, normal rhythm - Abdominal Exam Abdominal exam: Present: soft, tenderness (Moderate right-sided tenderness). Absent: distention, guarding, rebound - Extremities Exam Extremities exam: Present: normal inspection. Absent: pedal edema - Back Exam Back exam: Present: normal inspection. Absent: CVA tenderness (R), CVA tenderness (L) - Neurological Exam Neurological exam: Present: alert, oriented X3 - Skin Skin exam: Present: warm, dry, intact, normal color Course Course Narrative: Patient seen and examined. Patient's records from yesterday were reviewed. Patient is CT scan of the pelvis performed yesterday which showed moderate jejunal irritation likely enteritis. Patient had a surgical consult obtained at that time as well which reviewed continued antibiotic therapy and GI evaluation. Patient is not able to tolerate her oral medications and worsening pain. Patient's abdominal exam is nonsurgical at this point. No immediate need for repeat CT imaging will trial IV antibiotics and pain control. Patient will likely need admission. - Reevaluation(s) Reevaluation #1: Patient seen and examined. Patient states that the pain medicine did improve her symptoms. Patient states she does feel nauseous. Will re-dose her antibiotics. Patient will be admitted to the hospital service for IV therapy. Patient is remarkable on of care. Abdominal exam is nonsurgical. Time: 22:08 Vital Signs Temperature 98.1 F 12/01/16 19:15 Pulse Rate 54 12/01/16 19:15 Respiratory Rate 20 12/01/16 19:15 Blood Pressure 193/91 12/01/16 19:15 O2 Sat by Pulse Oximetry 97 12/01/16 19:15 Temperature 98.1 F 12/01/16 19:15 Pulse Rate 54 12/01/16 19:15 Respiratory Rate 20 12/01/16 19:15 Blood Pressure 193/91 12/01/16 19:15 O2 Sat by Pulse Oximetry 97 12/01/16 19:15 Oxygen Delivery Oxygen Delivery Room Air Abdominal Pain - Lab Data Lab results reviewed: Yes I reviewed the patient's lab results. Result diagrams: 12/01/16 20:42 12/01/16 20:42 Lab Results 12/01/16 12/01/16 12/01/16 Range/Units 19:43 20:42 20:42 WBC 13.8 H (4.3-11.1) K/mcL RBC 4.32 (3.82-4.97) M/mcL Hgb 13.4 (11.5-15.4) g/dL Hct 41.7 (35.3-44.9) % MCV 96.5 (83.0-100.0) fL MCH 31.0 (28.0-33.3) pg MCHC 32.1 (31.6-35.5) g/dL RDW 14.3 (11.5-14.5) % Plt Count 320 (140-400) K/mcL MPV 10.5 (9.4-12.4) fL Immature Gran % 0.4 (0-4) % Seg Neutrophils % 78.8 % Lymphocytes % 13.1 % Monocytes % 5.7 % Eosinophils % 1.9 % Basophils % 0.1 % Neutrophils # 10.9 H (1.6-8.9) K/mcL Lymphocytes # 1.8 (0.6-4.6) K/mcL Monocytes # 0.8 (0.0-1.3) K/mcL Eosinophils # 0.3 (0.0-0.6) K/mcL Basophils # 0.0 (0.0-0.2) K/mcL Sodium 138 (136-145) mEq/L Potassium 3.5 (3.5-4.5) mEq/L Chloride 105 (98-109) mEq/L Carbon Dioxide 26 (19-29) mEq/L BUN 18 (7-20) mg/dL Creatinine 0.73 (0.57-1.11) mg/dL Est GFR ( Amer) > 60 (> 60) Est GFR (Non-Af Amer) > 60 (> 60) BUN/Creatinine Ratio 25 (6-26) Glucose 132 H (70-99) mg/dL Calculated Osmolality 290 (280-300) Lactic Acid (0.5-2.2) mmol/L Calcium 9.0 (8.6-10.8) mg/dL Total Bilirubin 0.6 (0.2-1.2) mg/dL Direct Bilirubin 0.3 (0.0-0.5) mg/dL Indirect Bilirubin 0.3 (0.0-1.2) mg/dL AST 31 (5-34) Units/L ALT 37 (0-55) Units/L Alkaline Phosphatase 92 (38-126) Units/L Serum Total Protein 7.0 (6.0-8.3) g/dL Albumin 3.2 L (3.5-5.0) g/dL Globulin 3.8 H (2.4-3.5) g/dL Albumin/Globulin Ratio 0.8 L (1.1-2.2) Amylase 79 (25-125) Units/L Lipase < 10 (8-78) Units/L Urine Color Yellow (Yellow) Urine Clarity Clear (Clear) Urine pH 6.0 (5.0-8.0) pH Units Ur Specific [place] 1.020 (1.010-1.025) Urine Protein Negative (Neg-Trace) mg/dL Urine Glucose (UA) Normal (Normal) mg/dL Urine Ketones 15 H (Negative) mg/dL Urine Blood Negative (Negative) Urine Nitrite Negative (Negative) Urine Bilirubin Negative (Negative) Urine Urobilinogen Normal (Normal) mg/dL Ur Leukocyte Esterase Trace H (Negative) Urine Microscopic RBC 0-3 (0-3) per hpf Urine Microscopic WBC 0-3 (0-3) per hpf Ur Squamous Epith Cells Many H (None-Few) per lpf Urine Bacteria None Seen (None-Few) per hpf Hyaline Casts None Seen (None-Few) per lpf Ur Culture Indicated? YES A (NO) 12/01/16 Range/Units 21:36 WBC (4.3-11.1) K/mcL RBC (3.82-4.97) M/mcL Hgb (11.5-15.4) g/dL Hct (35.3-44.9) % MCV (83.0-100.0) fL MCH (28.0-33.3) pg MCHC (31.6-35.5) g/dL RDW (11.5-14.5) % Plt Count (140-400) K/mcL MPV (9.4-12.4) fL Immature Gran % (0-4) % Seg Neutrophils % % Lymphocytes % % Monocytes % % Eosinophils % % Basophils % % Neutrophils # (1.6-8.9) K/mcL Lymphocytes # (0.6-4.6) K/mcL Monocytes # (0.0-1.3) K/mcL Eosinophils # (0.0-0.6) K/mcL Basophils # (0.0-0.2) K/mcL Sodium (136-145) mEq/L Potassium (3.5-4.5) mEq/L Chloride (98-109) mEq/L Carbon Dioxide (19-29) mEq/L BUN (7-20) mg/dL Creatinine (0.57-1.11) mg/dL Est GFR ( Amer) (> 60) Est GFR (Non-Af Amer) (> 60) BUN/Creatinine Ratio (6-26) Glucose (70-99) mg/dL Calculated Osmolality (280-300) Lactic Acid 2.1 (0.5-2.2) mmol/L Calcium (8.6-10.8) mg/dL Total Bilirubin (0.2-1.2) mg/dL Direct Bilirubin (0.0-0.5) mg/dL Indirect Bilirubin (0.0-1.2) mg/dL AST (5-34) Units/L ALT (0-55) Units/L Alkaline Phosphatase (38-126) Units/L Serum Total Protein (6.0-8.3) g/dL Albumin (3.5-5.0) g/dL Globulin (2.4-3.5) g/dL Albumin/Globulin Ratio (1.1-2.2) Amylase (25-125) Units/L Lipase (8-78) Units/L Urine Color (Yellow) Urine Clarity (Clear) Urine pH (5.0-8.0) pH Units Ur Specific [place] (1.010-1.025) Urine Protein (Neg-Trace) mg/dL Urine Glucose (UA) (Normal) mg/dL Urine Ketones (Negative) mg/dL Urine Blood (Negative) Urine Nitrite (Negative) Urine Bilirubin (Negative) Urine Urobilinogen (Normal) mg/dL Ur Leukocyte Esterase (Negative) Urine Microscopic RBC (0-3) per hpf Urine Microscopic WBC (0-3) per hpf Ur Squamous Epith Cells (None-Few) per lpf Urine Bacteria (None-Few) per hpf Hyaline Casts (None-Few) per lpf Ur Culture Indicated? (NO) - Radiology Data Radiology results reviewed: Yes I reviewed the patient's radiology results. CT/CT abd pelvis wo no iv no oral IMPRESSION: 1. New since the prior examination is mild mid to distal jejunal changes in the midline lower abdomen and pelvis which may relate to possible enteritis. No evidence of obstruction or perforation. 2. The distal aspect of the appendix appears to be fluid opacified and a possible tip appendicitis cannot be excluded. 3. No abscess or evidence of perforation. S.B.ARegina - Ramírez.Juan.ARegina Situation: Demographics Background: Presenting Complaint Assessment: Vital Signs, Course and respsone to treatment, Patient/Family Expectation, Pertinant Lab Results Recommendation: Barrier(s) to disposition, Recommendation based on pending studies, treatments, or consults S.B.A.Dulce Maria Report Given to: Dr. Maddie Purcell Repor Time: 22:23 Attestation Statement - Attestation Attestation: I, Elvis Currie MD, personally evaluated this patient and discussed their management with the resident physician. I reviewed the resident's note and agree with the documented findings, medical decision making, and plan of care. 51-year-old female presents to the emergency department with a complaint of persistent right sided abdominal pain associated with nausea and vomiting. Some diarrhea earlier but none today. Patient was seen here yesterday and had a workup including a CT the abdomen and pelvis. She was admitted for enteritis discharged home earlier today on Cipro and Flagyl. She returns tonight stating she cannot keep the medicines down is having worse pain. On examination patient is a well-developed thin female in no acute distress. She is alert and oriented 3. There is no cyanosis or diaphoresis. Breath sounds are clear and equal bilaterally. Heart regular rate and rhythm. Abdomen is soft with normal bowel sounds. There is mild to moderate right mid and right upper abdominal tenderness on direct palpation with no guarding or rebound tenderness. No CVA tenderness. Organomegaly or masses. No tympany or distention. Labs reviewed. The hospitalist, Dr. Perkins, was consulted and accepted admission of the patient.
[2016-12-01] MEDS ORDERED: Ondansetron 4 MG/2 ML VIAL IVP PRN (22:50)
[2016-12-01] MEDS ORDERED: Naloxone 0.4 MG/ML INJ IVP PRN (22:50)
--- NOTE | 2016-12-01 22:58 | Internal Med History&Physical ---
<Radha Hoyt M - Last Filed: 12/02/16 00:16> Date of Encounter: 12/01/16 Time of Encounter: 22:55 Assessment and Plan (1) Enteritis Current visit: Yes Status: Acute Patient presents with abdominal pain, nausea and vomiting. CT of abdomen yesterday showed enteritis. NPO except ice chips IV fluids 0.9NS at 100mL/hr Cipro and Flagyl Zofran and phenergan for nausea and vomiting Morphine for abdominal pain consider endoscopy as an outpatient to evaluate for inflammatory bowel disease (2) Abdominal pain Current visit: Yes Status: Acute morphine for abdominal pain Narcan PRN for respiratory depression NPO except ice chips Qualifiers: Abdominal location: generalized Qualified Code(s): R10.84 - Generalized abdominal pain (3) Nausea vomiting and diarrhea Current visit: Yes Status: Acute Patient reporting abdominal pain, nausea and vomiting. IV fluids 0.9NS at 100mL/hr Zofran and phenergan for nausea and vomiting (4) Anxiety Current visit: Yes Status: Acute Ativan 1mg IVP TID (5) Smoker Current visit: Yes Status: Acute atient continues to smoke 1PPD despite previous lung cancer. Encouraged smoking cessation. Smoking cessation education and nicotine patch ordered. (6) DVT prophylaxis Current visit: Yes Status: Acute anti-embolic stockings lovenox SQ daily Internal Medicine - H&P: HPI Chief complaint: Nausea, vomiting Admitted From: Emergency Dept Plans for Post Hospital Care: Home History of present illness: Ms. Hoskins is a 51 year old female with history of lung cancer status post lobectomy chemoradiation on remission, seizure disorder, no longer on treatment , anxiety, bipolar disorder presented to the emergency department today with abdominal pain nausea vomiting diarrhea. Patient was just discharged earlier today for same complaint, and had a work up including CT and surgical consult and was discharged on oral cipro and flagyl. She reports she is unable to keep anything down. Vomiting is nonbloody, diarrhea is nonbloody. Abdominal pain is described as constant severe in the right lower quadrant, worse with palpation and vomiting. She also describes chills and sweats as well as body aches. She denies any headache, lightheadedness, chest pain, palpitations, shortness breath or coughing. Evaluation emergency department revealed mildly elevated white blood cell count of 13.8 Chest x-ray showed no acute abnormality. On exam, patient alert and oriented, mildly distressed, tearful, complaining of nausea and abdominal pain. Lungs are clear bilaterally to auscultation heart is regular rate and rhythm. Abdomen is diffusely tender more so in the right lower quadrant rebound tenderness. Past Med Surg Social Fam HX - Past Medical History Medical history: cancer, seizures, other Psychiatric history: anxiety, bipolar, depression - Past Surgical History Surgical History: , cancer surgery (right lobectomy), splenectomy - Social History Smoking Status: Current every day smoker Smokeless Tobacco Status: No Alcohol use: none Drug use: none - Family History Father Living Status: Mother Living Status: Hx Family Cardiac Disorders: Yes Hx Family Cancer: Yes Hx Family Endocrine Disorder: Yes (diabetes) Internal Medicine - H&P: Meds ALPRAZolam [Xanax 1 MG Tablet] 1 mg PO BID PRN 11/30/16 [History] Gabapentin [Neurontin] 800 mg PO TID 11/30/16 [History] Oxycodone HCl/Acetaminophen [Percocet 7.5-325 mg Tablet] 1 tab PO TID PRN [History] Quetiapine Fumarate [Seroquel] 200 mg PO HS 11/30/16 [History] Ciprofloxacin [Cipro] 500 mg PO BID #10 tablet 12/01/16 [Rx] metroNIDAZOLE [Flagyl] 500 mg PO TID #15 tablet 12/01/16 [Rx] Allergies No Known Allergies Allergy (Verified 12/01/16 19:14) All Systems PM: A 10-system review of systems was performed and is negative for pertinent findings except as documented above in the HPI. - Constitutional Constitutional: anorexia, chills, night sweats, no fever(s) - EENT Eyes: no change in vision, no discharge, no pain, no photophobia Ears: no ear discharge, no ear pain, no tinnitus Nose, mouth and throat: no dysphagia, no nasal discharge, no neck pain, no sore throat - Cardiovascular Cardiovascular ROS IM: no chest pain, no diaphoresis, no dyspnea, no lightheadedness, no palpitations, no syncope - Respiratory Respiratory: no cough, no dyspnea, no wheezing, no excessive phlegm production - Gastrointestinal Gastrointestinal: abdominal pain, nausea, vomiting, no diarrhea, no hematemesis , no hematochezia, no melena - Genitourinary Genitourinary: no change in urinary stream, no dysuria, no flank pain, no hematuria - Musculoskeletal Musculoskeletal ROS IM: no numbness, no tingling - Integumentary Integumentary IM: no rash, no unusual bruising - Neurological Neurological ROS: no confusion, no convulsions, no focal weakness, no numbness, no tingling, no tremor(s) - Hematologic/Lymphatic Hematologic/Lymphatic: no easy bruising - Constitutional Vitals: Temp Pulse Resp BP Pulse Ox 97.8 F 54 18 189/81 97 12/01/16 22:51 12/01/16 19:15 12/01/16 22:51 12/01/16 22:51 12/01/16 19:15 General appearance: Present: mild distress, A&O X 3, pleasant - Head Head exam: Present: atraumatic, normocephalic - Eye Eye exam: Present: PERRL, conjuntiva pink, sclera anicteric Pupils: Present: PERRL - ENT ENT exam: Present: mucous membranes dry - Neck Neck exam general surgery: Present: supple, trachea midline. Absent: lymphadenopathy - Respiratory Respiratory exam: Present: CTAB. Absent: accessory muscle use, rales, rhonchi, wheezes - Cardiovascular Cardiovascular exam: Present: RRR, +S1, +S2. Absent: diastolic murmur, gallop, rubs, systolic murmur - GI/Abdominal GI/Abdominal exam: Present: normal bowel sounds, soft, tenderness (diffuse), no peritoneal signs. Absent: distended - Extremities Exam Extremities exam: Present: warm, radial pulses palpable and symetrical. Absent : calf tenderness, cyanotic, pedal edema - Neurological Exam Neurological exam: Present: CN II-XII intact, oriented X3, no focal deficits. Absent: facial droop, speech deficit - Skin Skin exam: Present: dry, intact Internal Med - H&P Results - Labs CBC & Chem 7: 12/01/16 20:42 12/01/16 20:42 Labs: All Lab Results (24 Hours) 12/01/16 12/01/16 12/01/16 Range/Units 19:43 20:42 20:42 WBC 13.8 H (4.3-11.1) K/mcL RBC 4.32 (3.82-4.97) M/mcL Hgb 13.4 (11.5-15.4) g/dL Hct 41.7 (35.3-44.9) % MCV 96.5 (83.0-100.0) fL MCH 31.0 (28.0-33.3) pg MCHC 32.1 (31.6-35.5) g/dL RDW 14.3 (11.5-14.5) % Plt Count 320 (140-400) K/mcL MPV 10.5 (9.4-12.4) fL Immature Gran % 0.4 (0-4) % Seg Neutrophils % 78.8 % Lymphocytes % 13.1 % Monocytes % 5.7 % Eosinophils % 1.9 % Basophils % 0.1 % Neutrophils # 10.9 H (1.6-8.9) K/mcL Lymphocytes # 1.8 (0.6-4.6) K/mcL Monocytes # 0.8 (0.0-1.3) K/mcL Eosinophils # 0.3 (0.0-0.6) K/mcL Basophils # 0.0 (0.0-0.2) K/mcL Sodium 138 (136-145) mEq/L Potassium 3.5 (3.5-4.5) mEq/L Chloride 105 (98-109) mEq/L Carbon Dioxide 26 (19-29) mEq/L BUN 18 (7-20) mg/dL Creatinine 0.73 (0.57-1.11) mg/dL Est GFR ( Amer) > 60 (> 60) Est GFR (Non-Af Amer) > 60 (> 60) BUN/Creatinine Ratio 25 (6-26) Glucose 132 H (70-99) mg/dL Calculated Osmolality 290 (280-300) Lactic Acid (0.5-2.2) mmol/L Calcium 9.0 (8.6-10.8) mg/dL Total Bilirubin 0.6 (0.2-1.2) mg/dL Direct Bilirubin 0.3 (0.0-0.5) mg/dL Indirect Bilirubin 0.3 (0.0-1.2) mg/dL AST 31 (5-34) Units/L ALT 37 (0-55) Units/L Alkaline Phosphatase 92 (38-126) Units/L Serum Total Protein 7.0 (6.0-8.3) g/dL Albumin 3.2 L (3.5-5.0) g/dL Globulin 3.8 H (2.4-3.5) g/dL Albumin/Globulin Ratio 0.8 L (1.1-2.2) Amylase 79 (25-125) Units/L Lipase < 10 (8-78) Units/L Urine Color Yellow (Yellow) Urine Clarity Clear (Clear) Urine pH 6.0 (5.0-8.0) pH Units Ur Specific [place] 1.020 (1.010-1.025) Urine Protein Negative (Neg-Trace) mg/dL Urine Glucose (UA) Normal (Normal) mg/dL Urine Ketones 15 H (Negative) mg/dL Urine Blood Negative (Negative) Urine Nitrite Negative (Negative) Urine Bilirubin Negative (Negative) Urine Urobilinogen Normal (Normal) mg/dL Ur Leukocyte Esterase Trace H (Negative) Urine Microscopic RBC 0-3 (0-3) per hpf Urine Microscopic WBC 0-3 (0-3) per hpf Ur Squamous Epith Cells Many H (None-Few) per lpf Urine Bacteria None Seen (None-Few) per hpf Hyaline Casts None Seen (None-Few) per lpf Ur Culture Indicated? YES A (NO) 12/01/16 Range/Units 21:36 WBC (4.3-11.1) K/mcL RBC (3.82-4.97) M/mcL Hgb (11.5-15.4) g/dL Hct (35.3-44.9) % MCV (83.0-100.0) fL MCH (28.0-33.3) pg MCHC (31.6-35.5) g/dL RDW (11.5-14.5) % Plt Count (140-400) K/mcL MPV (9.4-12.4) fL Immature Gran % (0-4) % Seg Neutrophils % % Lymphocytes % % Monocytes % % Eosinophils % % Basophils % % Neutrophils # (1.6-8.9) K/mcL Lymphocytes # (0.6-4.6) K/mcL Monocytes # (0.0-1.3) K/mcL Eosinophils # (0.0-0.6) K/mcL Basophils # (0.0-0.2) K/mcL Sodium (136-145) mEq/L Potassium (3.5-4.5) mEq/L Chloride (98-109) mEq/L Carbon Dioxide (19-29) mEq/L BUN (7-20) mg/dL Creatinine (0.57-1.11) mg/dL Est GFR ( Amer) (> 60) Est GFR (Non-Af Amer) (> 60) BUN/Creatinine Ratio (6-26) Glucose (70-99) mg/dL Calculated Osmolality (280-300) Lactic Acid 2.1 (0.5-2.2) mmol/L Calcium (8.6-10.8) mg/dL Total Bilirubin (0.2-1.2) mg/dL Direct Bilirubin (0.0-0.5) mg/dL Indirect Bilirubin (0.0-1.2) mg/dL AST (5-34) Units/L ALT (0-55) Units/L Alkaline Phosphatase (38-126) Units/L Serum Total Protein (6.0-8.3) g/dL Albumin (3.5-5.0) g/dL Globulin (2.4-3.5) g/dL Albumin/Globulin Ratio (1.1-2.2) Amylase (25-125) Units/L Lipase (8-78) Units/L Urine Color (Yellow) Urine Clarity (Clear) Urine pH (5.0-8.0) pH Units Ur Specific [place] (1.010-1.025) Urine Protein (Neg-Trace) mg/dL Urine Glucose (UA) (Normal) mg/dL Urine Ketones (Negative) mg/dL Urine Blood (Negative) Urine Nitrite (Negative) Urine Bilirubin (Negative) Urine Urobilinogen (Normal) mg/dL Ur Leukocyte Esterase (Negative) Urine Microscopic RBC (0-3) per hpf Urine Microscopic WBC (0-3) per hpf Ur Squamous Epith Cells (None-Few) per lpf Urine Bacteria (None-Few) per hpf Hyaline Casts (None-Few) per lpf Ur Culture Indicated? (NO) <Javier Perkins - Last Filed: 12/02/16 02:10> Date of Encounter: 12/01/16 Internal Medicine - H&P: HPI History of present illness: Ms. Hoskins is a 51 year old female All Systems PM: A 10-system review of systems was performed and is negative for pertinent findings except as documented above in the HPI. - Constitutional Vitals: Temp Pulse Resp BP Pulse Ox 98.4 F 50 15 175/94 98 12/01/16 23:20 12/01/16 23:20 12/01/16 23:20 12/01/16 23:20 12/01/16 23:20 Internal Med - H&P Results - Labs CBC & Chem 7: 12/01/16 20:42 12/01/16 20:42 - Diagnostic Studies CT scan - abdomen Status: image reviewed by me (from most recent admission) - Attending Attestation I personally interviewed and examined this patient and my medical decision- making was reviewed with the Advanced Nurse Practitioner. I agree with the documented findings, disposition and treatment plan as described. Javier Perkins MD, MPH Hospitalist
[2016-12-01] MEDS ORDERED: 0.9 % Sodium Chloride 1,000 ML IVC SCH (23:00)
[2016-12-01] MEDS ORDERED: *HR* LORazepam 2 MG/ML VIAL IVP PRN (23:02)
[2016-12-02] MEDS: *HR* Promethazine 25 MG/ML VIAL IVP PRN ×3 (00:01→14:37)
[2016-12-02] MEDS: Nicotine 21 MG PATCH.TD24 TD SCH ×2 (00:40→08:01)
[2016-12-02] MEDS: *HR* Morphine 2 MG/ML SYRINGE IVP PRN ×3 (03:57→08:00)
[2016-12-02] MEDS ORDERED: *HR* Enoxaparin 40 MG/0.4 ML SYRINGE SQ SCH (06:00)
[2016-12-02] MEDS: MetroNIDAZOLE 500 MG/100 ML 500 MG/100 ML BAG IVPB SCH ×2 (06:10→16:53)
[2016-12-02 06:55] LABS: Basophils % 0.1 %; Hematocrit 40.9 % (35.3-44.9); Hemoglobin 13.8 g/dL (11.5-15.4); Immature Granulocytes % 0.4 % (0-4); Lymphocytes # 1.7 K/mcL (0.6-4.6); Lymphocytes % 13.1 %; Mean Corpuscular HGB Conc 33.7 g/dL (31.6-35.5); Mean Corpuscular Hemoglobin 31.7 pg (28.0-33.3); Mean Platelet Volume 11.5 fL (9.4-12.4); Monocytes # 0.5 K/mcL (0.0-1.3); Monocytes % 3.9 %; Neutrophils # 10.4 K/mcL (1.6-8.9); Platelet Count 322 K/mcL (140-400); Red Blood Count 4.35 M/mcL (3.82-4.97); Segmented Neutrophils % 82.5 %
[2016-12-02 06:56] LABS: BUN/Creatinine Ratio 14 (6-26); Blood Urea Nitrogen 9 mg/dL (7-20); Calcium 8.6 mg/dL (8.6-10.8); Carbon Dioxide 27 mEq/L (19-29); Chloride 99 mEq/L (98-109); Glucose 160 mg/dL (70-99); Osmolality,Calculated 282 (280-300); Potassium 2.8 mEq/L (3.5-4.5); Sodium 135 mEq/L (136-145); eGFR For African Americans > 60 (> 60); eGFR For Non-African Americans > 60 (> 60)
[2016-12-02] MEDS: *HR* HYDROmorphone (PF) 1 MG/ML SYRINGE IVP PRN ×3 (10:25→18:55)
[2016-12-02] MEDS ORDERED: 0.9 % Sodium Chloride w KCl 40 MEQ/1,000 ML MLS IVC SCH (11:30)
[2016-12-02 15:58] VITALS: BP 148/76
--- NOTE | 2016-12-02 17:03 | Discharge Summary ---
Date of Encounter: 12/02/16 Time of Encounter: 16:56 - Discharge Diagnosis (1) Abdominal pain Priority: Primary Status: Acute Qualifiers: Abdominal location: generalized Qualified Code(s): R10.84 - Generalized abdominal pain (2) Nausea and vomiting Priority: Secondary Status: Acute Qualifiers: Vomiting type: cyclical vomiting Vomiting Intractability: intractable Qualified Code(s): G43.A1 - Cyclical vomiting, intractable (3) Enteritis Priority: Secondary Status: Acute (4) Anxiety Priority: Secondary Status: Acute (5) History of lung cancer Priority: Secondary Status: Acute (6) Smoker Priority: Secondary Status: Acute - Discharge Medications Home Medications: ALPRAZolam [Xanax 1 MG Tablet] 1 mg PO BID PRN 11/30/16 [History] Gabapentin [Neurontin] 800 mg PO TID 11/30/16 [History] Oxycodone HCl/Acetaminophen [Percocet 7.5-325 mg Tablet] 1 tab PO TID PRN [History] Quetiapine Fumarate [Seroquel] 200 mg PO HS 11/30/16 [History] Ciprofloxacin [Cipro] 500 mg PO BID #10 tablet 12/01/16 [Rx] metroNIDAZOLE [Flagyl] 500 mg PO TID #15 tablet 12/01/16 [Rx] Allergies/Adverse Reactions: Allergies No Known Allergies Allergy (Verified 12/01/16 19:14) Date of admission: 12/01/16 23:17 Primary care physician: Deanne Galaviz CNP Consults: 12/01/16 23:45 Consult to Nutrition [CONS] Routine Comment: Consulting Provider: NUTRITION Reason for Dietary Consult: MST Score Consult to Pastoral Services [CONS] Routine Comment: 12/02/16 02:29 Consult to Invasive Line Access Team [CONS] Stat Reason for Consult: Limited IV access Line Type: EPIV Discharging clinician: Pavan Bundy Anticipated date of discharge: 12/02/16 - Patient Status Disposition: Transfer Other Condition: Serious Overall status at discharge: patient is not back to baseline - Discharge Instructions Follow Up With: Deanne Galaviz CNP [Primary Care Provider] - - Diet and Activity Diet: other (npo) Hospital course: Ms. Hoskins is a 51 year old female patient with history of lung cancer status post lobectomy, chemotherapy, anxiety, bipolar disorder and chronic hep C per history presented to the ER with complaints of abdominal pain and nausea and vomiting. She had just been discharged from the hospital after a similar episode that had improved while the patient was treated with antiemetics in the hospital. CT scan of the abdomen and pelvis done at that time revealed features suggestive of enteritis. Surgery was consulted as there was also concern for appendicitis. However after evaluating the patient, surgery did not feel that the patient had acute appendicitis and recommended evaluation by GI. Patient was kept nothing by mouth initially and then transitioned to clear liquid diet and her diet was then advanced. As the patient was tolerating diet well, she was discharged home and was to follow up outpatient with GI. At the time of discharge, she had been able to tolerate diet well without any issues. However, as soon as she got home, she began to feel sick with worsening pain, nausea and vomiting. So she has returned to the ER. Her symptoms have persisted despite being nothing by mouth. She is receiving IV antiemetics and pain medications without any improvement in her symptoms. She is also receiving IV ciprofloxacin and Flagyl along with PPI. Patient has not had any diarrhea here. Her symptoms have not improved so far. Given that we do not have GI services in house, it is appropriate to transfer the patient to tertiary care center for GI consultation. Patient had previously been treated at [facility] and will be transferred there. I have discussed the case with the providers there and the patient's accepting physician will be Dr. Leigh. Patient will be discharged from here and transferred over there once she has a bed available. - Time Spent with Patient Total time spent providing and/or coordinating discharge services: Greater than 30 minutes (50 min) - Constitutional Vitals: Temp Pulse Resp BP Pulse Ox 98.4 F 60 16 148/76 95 12/02/16 15:45 12/02/16 15:45 12/02/16 15:45 12/02/16 15:45 12/02/16 15:45 General appearance: Present: mild distress, A&O X 3, pleasant - Respiratory Respiratory exam: Present: CTAB. Absent: accessory muscle use, rales, rhonchi, wheezes - Cardiovascular Cardiovascular exam: Present: RRR, +S1, +S2. Absent: diastolic murmur, gallop, rubs, systolic murmur - GI/Abdominal GI/Abdominal exam: Present: soft, tenderness (Generalized), no peritoneal signs. Absent: distended - Neurological Exam Neurological exam: Present: alert, CN II-XII intact, oriented X3, no focal deficits. Absent: facial droop, speech deficit
[2016-12-02] MEDS ORDERED: Ondansetron 4 MG/2 ML VIAL IVP PRN (17:08)
[2016-12-02] MEDS: Pantoprazole 40 MG VIAL IVP SCH ×2 (17:48→17:51)
== END 2016-12-02 19:03 | disposition other institution (70) | DRG 392 ==
LOC: 3ANU 19:10 → EMEROO 19:10 → 3ANU 23:20
PROVIDERS: ADMIT Internal Medicine; ATTEND Internal Medicine

== ENCOUNTER 2019-02-14 15:40 | Inpatient (IN) ==
[2019-02-14] MEDS ORDERED: Morphine Sulfate Immed Rel 30 MG TABLET PO ONE (16:01)
[2019-02-14] MEDS ORDERED: *HR* HYDROmorphone (PF) 1 MG/ML SYRINGE IVP ONE ×3 (16:23→20:51)
[2019-02-14 16:36] LABS: BUN/Creatinine Ratio 23 (6-26); Blood Urea Nitrogen 15 mg/dL (6-20); Calcium 9.3 mg/dL (8.6-10.3); Carbon Dioxide 23 mEq/L (23-29); Chloride 102 mEq/L (98-107); Glucose 144 mg/dL (70-105); Osmolality,Calculated 275 (280-300); Potassium 3.7 mEq/L (3.5-5.1); Sodium 131 mEq/L (136-145); eGFR For African Americans > 60 (> 60); eGFR For Non-African Americans > 60 (> 60)
[2019-02-14] MEDS ORDERED: Isovue-370 500 ML BOTTLE IVP ONE (16:50)
[2019-02-14] MEDS ORDERED: *HR* LORazepam 2 MG/ML VIAL ONE ×2 (16:57)
[2019-02-14] MEDS ORDERED: *HR* LORazepam 2 MG/ML VIAL IVP ONE (17:23)
[2019-02-14] MEDS ORDERED: 0.9 % Sodium Chloride 1,000 ML IVC ONE (17:23)
[2019-02-14] MEDS ORDERED: *HR* HYDROmorphone (PF) 1 MG/ML SYRINGE IVP STA (17:23)
[2019-02-14] MEDS ORDERED: Clindamycin 600 MG/50 ML 600 MG/50 ML IV.SOLN IVPB STA (20:42)
[2019-02-14] MEDS ORDERED: levoFLOXacin 750 MG/150 ML 750 MG/150 ML BAG IVPB ONE (20:42)
[2019-02-14] MEDS ORDERED: Cefepime HCl 1,000 MG in 0.9 % Sodium Chloride Mini Bag 100 ML IVPB STA (20:48)
[2019-02-14 20:54] LABS: Basophils # 0.1 K/mcL (0.0-0.2); Basophils % 2.6 %; Eosinophils # 0.1 K/mcL (0.0-0.6); Eosinophils % 1.3 %; Hematocrit 32.5 % (35.3-44.9); Hemoglobin 11.2 g/dL (11.5-15.4); Immature Granulocytes % 4.6 % (0-4); Lymphocytes # 1.4 K/mcL (0.6-4.6); Mean Corpuscular HGB Conc 34.5 g/dL (31.6-35.5); Mean Corpuscular Hemoglobin 33.5 pg (28.0-33.3); Mean Corpuscular Volume 97.3 fL (83.0-100.0); Mean Platelet Volume 12.1 fL (9.4-12.4); Monocytes # 0.2 K/mcL (0.0-1.3); Monocytes % 5.1 %; Nucleated Red Blood Cells 2.3 /100 WBC (0); Platelet Count 291 K/mcL (140-400); Red Blood Count 3.34 M/mcL (3.82-4.97); Red Cell Distribution Width 16.2 % (11.5-14.5); Segmented Neutrophils % 50.4 %; White Blood Count 3.9 K/mcL (4.3-11.1)
[2019-02-14] MEDS ORDERED: Aspirin 81 MG TAB.CHEW PO ONE (21:00)
[2019-02-14 21:03] LABS: Bilirubin,Urine Negative (Negative); Blood,Urine Negative (Negative); Clarity,Urine Clear (Clear); Color,Urine Yellow (Yellow); Glucose,Urine (UA) Normal (Normal); Ketones,Urine Negative (Negative); Leukocyte Esterase,Urine Negative (Negative); Nitrite,Urine Negative (Negative); PH,Urine 6.5 pH Units (5.0-8.0); Protein,Urine Negative (Neg-Trace); Specific Gravity,Urine 1.028 (1.010-1.025); Urobilinogen,Urine Normal (Normal)
[2019-02-15] MEDS ORDERED: Naloxone 0.4 MG/ML INJ IVP PRN (00:27)
[2019-02-15] MEDS ORDERED: Albuterol 2.5 MG/3 ML NEBULIZER IH PRN (00:27)
[2019-02-15] MEDS ORDERED: Ondansetron ODT 4 MG TAB.RAPDIS SL PRN (00:27)
[2019-02-15] MEDS ORDERED: Nitroglycerin 0.4 MG TAB.SUBL SL PRN (00:27)
[2019-02-15] MEDS ORDERED: 0.9 % Sodium Chloride 1,000 ML IVC SCH (00:30)
[2019-02-15] MEDS ORDERED: MethylPREDNISolone 40 MG/ML VIAL IVP ONE (00:33)
[2019-02-15] MEDS ORDERED: Nicotine 7 MG PATCH.TD24 TD SCH (00:45)
[2019-02-15] MEDS: Ipratropium Neb 0.5 MG NEBULIZER IH SCH ×3 (00:57→07:17)
[2019-02-15] MEDS: Albuterol 2.5 MG/3 ML NEBULIZER IH SCH ×3 (00:58→07:17)
[2019-02-15] MEDS: *HR* Heparin 5,000 UNIT/ML VIAL SQ SCH ×4 (01:10→20:44)
[2019-02-15 01:13] LABS: Basophils # 0.1 K/mcL (0.0-0.2); Basophils % 2.9 %; Eosinophils % 0.3 %; Hematocrit 27.2 % (35.3-44.9); Immature Granulocytes % 3.5 % (0-4); Immature Reticulocyte % 11.6 % (11.0-38.0); Lymphocytes % 26.3 %; Mean Corpuscular HGB Conc 34.2 g/dL (31.6-35.5); Mean Corpuscular Hemoglobin 33.3 pg (28.0-33.3); Mean Corpuscular Volume 97.5 fL (83.0-100.0); Mean Platelet Volume 11.2 fL (9.4-12.4); Monocytes # 0.3 K/mcL (0.0-1.3); Monocytes % 6.7 %; Neutrophils # 2.3 K/mcL (1.6-8.9); Nucleated Red Blood Cells 1.6 /100 WBC (0); Platelet Count 278 K/mcL (140-400); Red Blood Count 2.79 M/mcL (3.82-4.97); Red Cell Distribution Width 15.7 % (11.5-14.5); Retculocyte # 0.04 M/mcL (0.05-0.10); Reticulocyte % 1.6 % (1.6-2.8); Segmented Neutrophils % 60.3 %; White Blood Count 3.7 K/mcL (4.3-11.1)
[2019-02-15 01:14] LABS: Hemoglobin 9.3 g/dL (11.5-15.4)
[2019-02-15 01:22] LABS: INR 1.1; Prothrombin Time 12.6 Seconds (9.4-12.1)
[2019-02-15] MEDS: Nicotine 7 MG PATCH.TD24 TD SCH (01:30)
[2019-02-15 01:35] LABS: % Iron Saturation 22 % (15-50); Alanine Aminotransferase 19 Units/L (7-52); Albumin 3.1 g/dL (3.5-5.7); Albumin/Globulin Ratio 1.2 (1.1-2.2); Alkaline Phosphatase 57 Units/L (34-104); Aspartate Amino Transferase 13 Units/L (13-39); BUN/Creatinine Ratio 27 (6-26); Bilirubin,Total 0.6 mg/dL (0.3-1.0); Blood Urea Nitrogen 13 mg/dL (6-20); Calcium 8.1 mg/dL (8.6-10.3); Carbon Dioxide 21 mEq/L (23-29); Chloride 105 mEq/L (98-107); Chol/HDL Ratio 4.2 (0-4.9); Cholesterol 167 mg/dL (< 200); Globulin 2.6 g/dL (2.4-3.5); Glucose 147 mg/dL (70-105); HDL Cholesterol 40 mg/dL (40-59); Iron 51 mcg/dL (50-170); LDL Cholesterol,Calculated 106 mg/dL (0-99); Lactate Dehydrogenase 126 Units/L (140-271); Magnesium 1.7 mg/dL (1.6-2.6); Osmolality,Calculated 279 (280-300); Phosphorous 2.6 mg/dL (2.7-4.5); Potassium 3.7 mEq/L (3.5-5.1); Sodium 133 mEq/L (136-145); Total Protein 5.7 g/dL (6.4-8.9); Transferrin 168 mg/dL (203-362); Triglycerides 104 mg/dL (< 150); eGFR For African Americans > 60 (> 60); eGFR For Non-African Americans > 60 (> 60)
[2019-02-15 01:52] LABS: Ferritin 423 ng/mL (10-120)
[2019-02-15 01:57] LABS: Folate 9.9 ng/mL (3.0-16.0)
[2019-02-15] MEDS ORDERED: *HR* OxyCODONE/APAP 5/325 TABLET PO PRN (03:48)
[2019-02-15] MEDS: Morphine Sulfate 2 MG/ML SYRINGE IVP PRN ×4 (08:09→14:20)
[2019-02-15] MEDS: Cefepime HCl 1,000 MG in 0.9 % Sodium Chloride Mini Bag 100 ML IVPB SCH ×2 (08:13→16:09)
[2019-02-15] MEDS: Famotidine 20 MG TABLET PO SCH ×2 (08:16→20:43)
[2019-02-15] MEDS: predniSONE 20 MG TABLET PO SCH (08:16)
[2019-02-15] MEDS: Gabapentin 400 MG CAPSULE PO SCH ×3 (08:16→20:44)
[2019-02-15] MEDS: Aspirin Enteric Coated 81 MG Tablet PO SCH (08:16)
[2019-02-15] MEDS: ALPRAZolam 1 MG TABLET PO PRN ×2 (08:19→18:15)
[2019-02-15 08:52] LABS: Bilirubin,Urine Negative (Negative); Blood,Urine Negative (Negative); Clarity,Urine Clear (Clear); Color,Urine Yellow (Yellow); Glucose,Urine (UA) Normal (Normal); Ketones,Urine Negative (Negative); Leukocyte Esterase,Urine Negative (Negative); Nitrite,Urine Negative (Negative); PH,Urine 6.5 pH Units (5.0-8.0); Protein,Urine Negative (Neg-Trace); Specific Gravity,Urine > 1.030 (1.010-1.025); Urobilinogen,Urine Normal (Normal)
[2019-02-15 08:59] LABS: Amphetamine Screen,Urine Negative ng/mL (Cutoff=1000); Barbiturate Screen,Urine Negative ng/mL (Cutoff=200); Benzodiazepines Screen,Urine Negative ng/mL (Cutoff=200); Cannabinoid Screen,Urine Negative ng/mL (Cutoff = 50); Cocaine Screen,Urine Negative ng/mL (Cutoff= 300); Phencyclidine Screen,Urine Negative ng/mL (Cutoff=25)
[2019-02-15] MEDS ORDERED: Ipratropium/Albuterol Neb 3 ML IH PRN (10:54)
[2019-02-15 12:21] LABS: Opiate Screen,Urine Positive ng/mL (Cutoff=300)
[2019-02-15] MEDS: Ketorolac 15 MG/ML VIAL IVP PRN ×2 (16:08→22:13)
[2019-02-16] MEDS: Cefepime HCl 1,000 MG in 0.9 % Sodium Chloride Mini Bag 100 ML IVPB SCH ×3 (00:57→16:52)
[2019-02-16] MEDS: Nicotine 7 MG PATCH.TD24 TD SCH (01:04)
[2019-02-16] MEDS: *HR* Heparin 5,000 UNIT/ML VIAL SQ SCH ×3 (06:30→20:14)
[2019-02-16] MEDS: Gabapentin 400 MG CAPSULE PO SCH ×3 (09:32→20:14)
[2019-02-16] MEDS: Famotidine 20 MG TABLET PO SCH ×2 (09:32→20:14)
[2019-02-16] MEDS: Ketorolac 15 MG/ML VIAL IVP PRN (09:33)
[2019-02-16] MEDS: Aspirin Enteric Coated 81 MG Tablet PO SCH (09:33)
[2019-02-16] MEDS: predniSONE 20 MG TABLET PO SCH (09:33)
[2019-02-16] MEDS: ALPRAZolam 1 MG TABLET PO PRN ×2 (09:33→20:14)
[2019-02-16] MEDS ORDERED: Aminoglycoside Consult 1 EACH MC ONE (13:13)
[2019-02-17] MEDS: Cefepime HCl 1,000 MG in 0.9 % Sodium Chloride Mini Bag 100 ML IVPB SCH ×2 (00:09→09:38)
[2019-02-17] MEDS: Nicotine 7 MG PATCH.TD24 TD SCH (01:10)
[2019-02-17 04:28] LABS: Basophils % 0.4 %; Hematocrit 29.4 % (35.3-44.9); Hemoglobin 9.6 g/dL (11.5-15.4); Immature Granulocytes % 4.4 % (0-4); Lymphocytes % 21.3 %; Mean Corpuscular HGB Conc 32.7 g/dL (31.6-35.5); Mean Corpuscular Hemoglobin 33.2 pg (28.0-33.3); Mean Corpuscular Volume 101.7 fL (83.0-100.0); Mean Platelet Volume 11.5 fL (9.4-12.4); Monocytes # 0.2 K/mcL (0.0-1.3); Monocytes % 3.9 %; Neutrophils # 3.2 K/mcL (1.6-8.9); Nucleated Red Blood Cells 2.4 /100 WBC (0); Platelet Count 366 K/mcL (140-400); Red Blood Count 2.89 M/mcL (3.82-4.97); Red Cell Distribution Width 16.1 % (11.5-14.5); White Blood Count 4.6 K/mcL (4.3-11.1)
[2019-02-17 04:42] LABS: BUN/Creatinine Ratio 42 (6-26); Blood Urea Nitrogen 22 mg/dL (6-20); Calcium 8.7 mg/dL (8.6-10.3); Carbon Dioxide 24 mEq/L (23-29); Chloride 109 mEq/L (98-107); Glucose 208 mg/dL (70-105); Osmolality,Calculated 291 (280-300); Potassium 4.5 mEq/L (3.5-5.1); Sodium 136 mEq/L (136-145); eGFR For African Americans > 60 (> 60); eGFR For Non-African Americans > 60 (> 60)
[2019-02-17] MEDS: *HR* Heparin 5,000 UNIT/ML VIAL SQ SCH (06:15)
[2019-02-17 06:38] VITALS: BP 130/77
[2019-02-17 07:50] LABS: Estimated Average Glucose 154 mg/dl
[2019-02-17] MEDS: Gabapentin 400 MG CAPSULE PO SCH (09:37)
[2019-02-17] MEDS: Aspirin Enteric Coated 81 MG Tablet PO SCH (09:37)
[2019-02-17] MEDS: Famotidine 20 MG TABLET PO SCH (09:37)
[2019-02-17] MEDS: ALPRAZolam 1 MG TABLET PO PRN (09:37)
[2019-02-17] MEDS: predniSONE 20 MG TABLET PO SCH (09:37)
== END 2019-02-17 13:14 | disposition home or self-care (01) | DRG 193 ==
LOC: EMEROOARM 15:40 → 3ANU 15:40 → SUATTDRO 02-15 00:27
PROVIDERS: ADMIT Internal Medicine; ATTEND Internal Medicine

== ENCOUNTER 2019-05-21 14:38 | Observation (INO) ==
[~2019-05-21 14:38] MED LIST: Aminoglycoside Consult 1 EACH MC ONE
[2019-05-21] MEDS ORDERED: Isovue-370 500 ML BOTTLE IVP ONE (14:42)
[2019-05-21] MEDS ORDERED: predniSONE 20 MG TABLET PO ONE (14:42)
[2019-05-21] MEDS ORDERED: Ipratropium/Albuterol Neb 3 ML IH ONE (14:42)
[2019-05-21] MEDS ORDERED: *HR* HYDROmorphone (PF) 1 MG/ML SYRINGE IVP STA (14:47)
[2019-05-21 15:59] LABS: Basophils # 0.1 K/mcL (0.0-0.2); Basophils % 0.3 %; Eosinophils # 0.1 K/mcL (0.0-0.6); Eosinophils % 0.7 %; Hematocrit 36.2 % (35.3-44.9); Hemoglobin 12.2 g/dL (11.5-15.4); Immature Granulocytes % 1.3 % (0-4); Lymphocytes # 2.5 K/mcL (0.6-4.6); Lymphocytes % 13.8 %; Mean Corpuscular HGB Conc 33.7 g/dL (31.6-35.5); Mean Corpuscular Hemoglobin 32.3 pg (28.0-33.3); Mean Corpuscular Volume 95.8 fL (83.0-100.0); Mean Platelet Volume 10.1 fL (9.4-12.4); Monocytes # 1.3 K/mcL (0.0-1.3); Monocytes % 7.1 %; Neutrophils # 13.8 K/mcL (1.6-8.9); Platelet Count 397 K/mcL (140-400); Red Blood Count 3.78 M/mcL (3.82-4.97); Red Cell Distribution Width 14.2 % (11.5-14.5); Segmented Neutrophils % 76.8 %; White Blood Count 17.9 K/mcL (4.3-11.1)
[2019-05-21 16:19] LABS: BUN/Creatinine Ratio 20 (6-26); Blood Urea Nitrogen 10 mg/dL (6-20); Calcium 9.1 mg/dL (8.6-10.3); Carbon Dioxide 24 mEq/L (23-29); Chloride 100 mEq/L (98-107); Glucose 128 mg/dL (70-105); Osmolality,Calculated 279 (280-300); Potassium 3.8 mEq/L (3.5-5.1); Sodium 134 mEq/L (136-145); Troponin I 0.03 ng/mL (< 0.04); eGFR For African Americans > 60 (> 60); eGFR For Non-African Americans > 60 (> 60)
[2019-05-21] MEDS ORDERED: Azithromycin 500 MG in 0.9 % Sodium Chloride 250 ML IVPB ONE (17:28)
[2019-05-21] MEDS ORDERED: cefTRIAXone 1,000 MG in 0.9 % Sodium Chloride Mini Bag 100 ML IVPB ONE (17:28)
[2019-05-21] MEDS ORDERED: *HR* HYDROmorphone (PF) 1 MG/ML SYRINGE IVP ONE (17:31)
[2019-05-21] MEDS ORDERED: Naloxone 0.4 MG/ML INJ IVP PRN (17:53)
[2019-05-21] MEDS ORDERED: MOM Conc 10 ML UD.LIQ PO PRN (17:53)
[2019-05-21] MEDS ORDERED: *HR* OxyCODONE Immed Rel 5 MG TABLET PO PRN (17:53)
[2019-05-21] MEDS ORDERED: Ondansetron 4 MG/2 ML VIAL IVP PRN (17:53)
[2019-05-21] MEDS ORDERED: *HR* HYDROcodone/Acet 5/325 mg TABLET PO PRN (17:53)
[2019-05-21] MEDS ORDERED: Mag Hydrox/Al Hydrox/Simeth 30 ML UDC PO PRN (17:53)
[2019-05-21] MEDS ORDERED: 0.9 % Sodium Chloride 1,000 ML IVC ONE (17:53)
[2019-05-21] MEDS ORDERED: Acetaminophen 325 MG TABLET PO PRN (17:53)
[2019-05-21] MEDS ORDERED: ALPRAZolam 1 MG TABLET PO PRN (17:56)
[2019-05-21] MEDS ORDERED: Vancomycin (wt based) 1,000 MG VIAL IVPB SCH (18:00)
[2019-05-21] MEDS ORDERED: Ringers Solution, Lactated 1,000 ML IVC SCH (18:00)
[2019-05-21] MEDS: Famotidine 20 MG TABLET PO SCH (21:00)
[2019-05-21] MEDS: Gabapentin 400 MG CAPSULE PO SCH (21:00)
[2019-05-22] MEDS: Piperacillin/Tazobactam 3.375 GM in 0.9 % Sodium Chloride Mini Bag 100 ML IVPB SCH ×2 (01:16→09:02)
[2019-05-22 05:42] LABS: Hematocrit 33.6 % (35.3-44.9); Hemoglobin 11.3 g/dL (11.5-15.4); Mean Corpuscular HGB Conc 33.6 g/dL (31.6-35.5); Mean Corpuscular Hemoglobin 32.8 pg (28.0-33.3); Mean Corpuscular Volume 97.4 fL (83.0-100.0); Mean Platelet Volume 9.8 fL (9.4-12.4); Platelet Count 373 K/mcL (140-400); Red Blood Count 3.45 M/mcL (3.82-4.97); Red Cell Distribution Width 14.1 % (11.5-14.5); White Blood Count 14.6 K/mcL (4.3-11.1)
[2019-05-22 06:08] LABS: BUN/Creatinine Ratio 21 (6-26); Blood Urea Nitrogen 12 mg/dL (6-20); Carbon Dioxide 25 mEq/L (23-29); Chloride 102 mEq/L (98-107); Glucose 132 mg/dL (70-105); Magnesium 1.9 mg/dL (1.6-2.6); Osmolality,Calculated 282 (280-300); Potassium 4.3 mEq/L (3.5-5.1); Sodium 135 mEq/L (136-145); eGFR For African Americans > 60 (> 60); eGFR For Non-African Americans > 60 (> 60)
[2019-05-22 07:27] VITALS: BP 116/69
[2019-05-22] MEDS ORDERED: predniSONE 20 MG TABLET PO SCH (09:00)
[2019-05-22] MEDS ORDERED: Aspirin Enteric Coated 81 MG Tablet PO SCH (09:00)
[2019-05-22] MEDS: Gabapentin 400 MG CAPSULE PO SCH (09:02)
[2019-05-22] MEDS: Famotidine 20 MG TABLET PO SCH (09:02)
[2019-05-22] MEDS ORDERED: *HR* OxyCODONE/APAP 10/325 TABLET PO PRN (11:35)
[2019-05-22] MEDS ORDERED: Doxycycline 100 MG CAPSULE PO SCH (17:00)
== END 2019-05-22 13:45 | disposition home or self-care (01) ==
LOC: EMEROOARM 14:38 → 3ANU 14:38 → SUATTDRO 18:58 → 3ANU 19:56
PROVIDERS: ADMIT Family Medicine; ATTEND Internal Medicine

== ENCOUNTER 2020-01-09 09:42 | Inpatient (IN) ==
[2020-01-09] MEDS ORDERED: Ketorolac 30 MG/ML VIAL IVP ONE (10:05)
[2020-01-09 10:58] LABS: Basophils % 0.2 %; Eosinophils % 0.1 %; Hematocrit 36.2 % (35.3-44.9); Hemoglobin 12.1 g/dL (11.5-15.4); Immature Granulocytes % 0.8 % (0-4); Lymphocytes # 0.7 K/mcL (0.6-4.6); Lymphocytes % 5.4 %; Mean Corpuscular HGB Conc 33.4 g/dL (31.6-35.5); Mean Corpuscular Hemoglobin 30.2 pg (28.0-33.3); Mean Corpuscular Volume 90.3 fL (83.0-100.0); Monocytes # 1.2 K/mcL (0.0-1.3); Monocytes % 9.3 %; Neutrophils # 11.2 K/mcL (1.6-8.9); Platelet Count 333 K/mcL (140-400); Red Blood Count 4.01 M/mcL (3.82-4.97); Segmented Neutrophils % 84.2 %; White Blood Count 13.3 K/mcL (4.3-11.1)
[2020-01-09 11:46] LABS: INR 1.4; Prothrombin Time 15.6 Seconds (9.4-12.1)
[2020-01-09 11:55] LABS: BUN/Creatinine Ratio 17 (6-26); Blood Urea Nitrogen 7 mg/dL (6-20); Calcium 9.1 mg/dL (8.6-10.3); Carbon Dioxide 30 mEq/L (23-29); Chloride 92 mEq/L (98-107); Glucose 126 mg/dL (70-105); Osmolality,Calculated 268 (280-300); Potassium 3.3 mEq/L (3.5-5.1); Sodium 129 mEq/L (136-145); eGFR For African Americans > 60 (> 60); eGFR For Non-African Americans > 60 (> 60)
[2020-01-09 12:02] LABS: Troponin I 0.03 ng/mL (< 0.04)
[2020-01-09] MEDS ORDERED: Isovue-370 500 ML BOTTLE IVP ONE (12:13)
[2020-01-09] MEDS ORDERED: levoFLOXacin 500 MG/100 ML 500 MG/100 ML BAG IVPB ONE (13:44)
[2020-01-09] MEDS ORDERED: *HR* FentaNYL (PF) 100 MCG/2 ML VIAL IVP ONE (13:46)
[2020-01-09] MEDS ORDERED: 0.9 % Sodium Chloride 500 ML IVC ONE (14:24)
[2020-01-09 15:25] LABS: Adenovirus Not Detected (Not Detect); Bordetella Pertussis Not Detected (Not Detect); Chlamydophila pneumoniae Not Detected (Not Detect); Coronavirus 229E Not Detected (Not Detect); Coronavirus HKU1 Not Detected (Not Detect); Coronavirus NL63 Not Detected (Not Detect); Coronavirus OC43 Not Detected (Not Detect); Human Metapneumovirus Not Detected (Not Detect); Human Rhinovirus/Enterovirus Not Detected (Not Detect); Influenza A Subtype 2009 H1 Not Detected (Not Detect); Influenza B Not Detected (Not Detect); Mycoplasma pneumoniae Not Detected (Not Detect); Parainfluenza Virus 1 Not Detected (Not Detect); Parainfluenza Virus 2 Not Detected (Not Detect); Parainfluenza Virus 3 Not Detected (Not Detect); Parainfluenza Virus 4 Not Detected (Not Detect); Respiratory Syncytial Virus Not Detected (Not Detect)
[2020-01-09] MEDS ORDERED: *HR* HYDROmorphone (PF) 1 MG/ML SYRINGE IVP ONE (16:40)
[2020-01-09] MEDS ORDERED: *HR* OxyCODONE Immed Rel 5 MG TABLET PO PRN (17:33)
[2020-01-09] MEDS ORDERED: Ondansetron ODT 4 MG TAB.RAPDIS SL PRN (17:33)
[2020-01-09] MEDS ORDERED: Acetaminophen 325 MG TABLET PO PRN (17:33)
[2020-01-09] MEDS ORDERED: *HR* HYDROcodone/Acet 5/325 mg TABLET PO PRN (17:33)
[2020-01-09] MEDS ORDERED: Naloxone 0.4 MG/ML INJ IVP PRN (17:33)
[2020-01-09] MEDS ORDERED: Piperacillin/Tazobactam 3.375 GM in 0.9 % Sodium Chloride Mini Bag 100 ML IVPB SCH (19:00)
[2020-01-09] MEDS ORDERED: *HR* HYDROmorphone 2 MG TABLET PO ONE (20:05)
[2020-01-09] MEDS: Gabapentin 400 MG CAPSULE PO SCH ×2 (20:57→21:01)
[2020-01-09] MEDS: Famotidine 20 MG TABLET PO SCH (20:57)
[2020-01-09] MEDS: QUEtiapine Fumarate 100 MG TABLET PO SCH (20:58)
[2020-01-09] MEDS: Azithromycin 500 MG in 0.9 % Sodium Chloride 250 ML IVPB SCH (20:58)
[2020-01-09] MEDS ORDERED: ALPRAZolam 1 MG TABLET PO SCH (21:00)
[2020-01-09] MEDS ORDERED: 0.9 % Sodium Chloride 1,000 ML IVC ONE (23:20)
[2020-01-09 23:36] LABS: BUN/Creatinine Ratio 26 (6-26); Blood Urea Nitrogen 10 mg/dL (6-20); Calcium 8.3 mg/dL (8.6-10.3); Carbon Dioxide 27 mEq/L (23-29); Chloride 98 mEq/L (98-107); Glucose 98 mg/dL (70-105); Osmolality,Calculated 271 (280-300); Potassium 3.9 mEq/L (3.5-5.1); Sodium 131 mEq/L (136-145); eGFR For African Americans > 60 (> 60); eGFR For Non-African Americans > 60 (> 60)
[2020-01-10 03:23] LABS: Basophils % 0.5 %; Eosinophils # 0.3 K/mcL (0.0-0.6); Eosinophils % 3.5 %; Hematocrit 32.3 % (35.3-44.9); Hemoglobin 10.6 g/dL (11.5-15.4); Immature Granulocytes % 1.3 % (0-4); Lymphocytes # 0.7 K/mcL (0.6-4.6); Lymphocytes % 8.7 %; Mean Corpuscular HGB Conc 32.8 g/dL (31.6-35.5); Mean Corpuscular Hemoglobin 30.6 pg (28.0-33.3); Mean Corpuscular Volume 93.4 fL (83.0-100.0); Monocytes # 0.9 K/mcL (0.0-1.3); Monocytes % 11.2 %; Neutrophils # 6.1 K/mcL (1.6-8.9); Platelet Count 324 K/mcL (140-400); Red Blood Count 3.46 M/mcL (3.82-4.97); Red Cell Distribution Width 14.2 % (11.5-14.5); Segmented Neutrophils % 74.8 %; White Blood Count 8.2 K/mcL (4.3-11.1)
[2020-01-10 03:46] LABS: BUN/Creatinine Ratio 21 (6-26); Blood Urea Nitrogen 9 mg/dL (6-20); Calcium 8.3 mg/dL (8.6-10.3); Carbon Dioxide 25 mEq/L (23-29); Chloride 100 mEq/L (98-107); Glucose 122 mg/dL (70-105); Osmolality,Calculated 272 (280-300); Potassium 3.6 mEq/L (3.5-5.1); Sodium 131 mEq/L (136-145); eGFR For African Americans > 60 (> 60); eGFR For Non-African Americans > 60 (> 60)
[2020-01-10] MEDS ORDERED: 0.9 % Sodium Chloride 1,000 ML IVC SCH (04:30)
[2020-01-10] MEDS: Piperacillin/Tazobactam 3.375 GM in 0.9 % Sodium Chloride Mini Bag 100 ML IVPB SCH ×2 (08:27→15:50)
[2020-01-10] MEDS ORDERED: *HR* LORazepam 2 MG/ML VIAL IVP PRN (08:57)
[2020-01-10 09:13] LABS: BUN/Creatinine Ratio 16 (6-26); Blood Urea Nitrogen 6 mg/dL (6-20); Calcium 8.1 mg/dL (8.6-10.3); Carbon Dioxide 25 mEq/L (23-29); Chloride 98 mEq/L (98-107); Glucose 96 mg/dL (70-105); Osmolality,Calculated 265 (280-300); Potassium 3.5 mEq/L (3.5-5.1); Sodium 129 mEq/L (136-145); eGFR For African Americans > 60 (> 60); eGFR For Non-African Americans > 60 (> 60)
[2020-01-10] MEDS: Famotidine 20 MG TABLET PO SCH ×2 (11:16→20:59)
[2020-01-10] MEDS: polyethylene glycoL 3350 17 GM POWD.PACK PO SCH (11:16)
[2020-01-10] MEDS: Gabapentin 400 MG CAPSULE PO SCH ×3 (11:16→20:59)
[2020-01-10] MEDS: ALPRAZolam 1 MG TABLET PO SCH ×2 (14:45→20:59)
[2020-01-10] MEDS: *HR* OxyCODONE Immed Rel 15 MG TABLET PO PRN ×2 (14:45→20:58)
[2020-01-10] MEDS ORDERED: Ipratropium/Albuterol Neb 3 ML IH PRN (15:40)
[2020-01-10] MEDS ORDERED: Piperacillin/Tazobactam 3.375 GM VIAL ONE (15:42)
[2020-01-10] MEDS: predniSONE 20 MG TABLET PO SCH (15:54)
[2020-01-10] MEDS: Budesonide/Formoterol 160/4.5 1 PUFF INH IH SCH (20:11)
[2020-01-10] MEDS: QUEtiapine Fumarate 100 MG TABLET PO SCH (20:59)
[2020-01-10] MEDS: Azithromycin 500 MG in 0.9 % Sodium Chloride 250 ML IVPB SCH (20:59)
[2020-01-11] MEDS ORDERED: 0.9 % Sodium Chloride 250 ML IVC ONE ×2 (00:39→01:20)
[2020-01-11] MEDS: Piperacillin/Tazobactam 3.375 GM in 0.9 % Sodium Chloride Mini Bag 100 ML IVPB SCH ×4 (00:47→23:44)
[2020-01-11 02:11] LABS: BUN/Creatinine Ratio 18 (6-26); Blood Urea Nitrogen 8 mg/dL (6-20); Carbon Dioxide 22 mEq/L (23-29); Chloride 101 mEq/L (98-107); Glucose 223 mg/dL (70-105); Osmolality,Calculated 275 (280-300); Potassium 3.5 mEq/L (3.5-5.1); Sodium 130 mEq/L (136-145); eGFR For African Americans > 60 (> 60); eGFR For Non-African Americans > 60 (> 60)
[2020-01-11 05:26] LABS: Basophils % 0.2 %; Eosinophils % 0.1 %; Hematocrit 33.1 % (35.3-44.9); Hemoglobin 10.6 g/dL (11.5-15.4); Immature Granulocytes % 1.2 % (0-4); Lymphocytes # 0.6 K/mcL (0.6-4.6); Lymphocytes % 5.5 %; Mean Corpuscular Hemoglobin 30.2 pg (28.0-33.3); Mean Corpuscular Volume 94.3 fL (83.0-100.0); Mean Platelet Volume 9.2 fL (9.4-12.4); Monocytes # 0.6 K/mcL (0.0-1.3); Monocytes % 5.1 %; Neutrophils # 9.6 K/mcL (1.6-8.9); Platelet Count 377 K/mcL (140-400); Red Blood Count 3.51 M/mcL (3.82-4.97); Red Cell Distribution Width 14.2 % (11.5-14.5); Segmented Neutrophils % 87.9 %; White Blood Count 10.9 K/mcL (4.3-11.1)
[2020-01-11 05:47] LABS: BUN/Creatinine Ratio 16 (6-26); Blood Urea Nitrogen 7 mg/dL (6-20); Calcium 8.4 mg/dL (8.6-10.3); Carbon Dioxide 24 mEq/L (23-29); Chloride 103 mEq/L (98-107); Glucose 151 mg/dL (70-105); Osmolality,Calculated 279 (280-300); Potassium 3.7 mEq/L (3.5-5.1); Sodium 134 mEq/L (136-145); eGFR For African Americans > 60 (> 60); eGFR For Non-African Americans > 60 (> 60)
[2020-01-11] MEDS: Budesonide/Formoterol 160/4.5 1 PUFF INH IH SCH ×2 (07:45→20:10)
[2020-01-11] MEDS: Famotidine 20 MG TABLET PO SCH ×2 (08:48→21:03)
[2020-01-11] MEDS: predniSONE 20 MG TABLET PO SCH (08:49)
[2020-01-11] MEDS: polyethylene glycoL 3350 17 GM POWD.PACK PO SCH (08:50)
[2020-01-11] MEDS: *HR* OxyCODONE Immed Rel 15 MG TABLET PO PRN ×3 (09:12→20:05)
[2020-01-11] MEDS: Gabapentin 400 MG CAPSULE PO SCH ×3 (09:17→21:03)
[2020-01-11] MEDS ORDERED: ALPRAZolam 0.5 MG TABLET PO ONE (10:14)
[2020-01-11] MEDS: Vancomycin 1,250 MG/262.5 ML IV.SOLN IVPB SCH ×2 (12:12→23:51)
[2020-01-11] MEDS ORDERED: D5% in Water 1,000 ML IVC PRN (12:29)
[2020-01-11] MEDS ORDERED: Dextrose Gel 15 GM/37.5 ML TUBE PO PRN ×2 (12:29)
[2020-01-11] MEDS ORDERED: *HR* Dextrose 50 % in Water (Vial) 50 ML VIAL IVP PRN (12:29)
[2020-01-11] MEDS: ALPRAZolam 1 MG TABLET PO SCH ×2 (15:30→21:03)
[2020-01-11] MEDS: Insulin LISPRO 300 UNITS/3 ML VIAL SQ SCH (19:59)
[2020-01-11] MEDS: Azithromycin 500 MG in 0.9 % Sodium Chloride 250 ML IVPB SCH (20:06)
[2020-01-11] MEDS ORDERED: Insulin LISPRO 300 UNITS/3 ML VIAL SQ SCH (21:00)
[2020-01-12] MEDS: *HR* OxyCODONE Immed Rel 15 MG TABLET PO PRN ×2 (04:46→10:50)
[2020-01-12 05:14] LABS: Basophils % 0.1 %; Eosinophils % 0.1 %; Hematocrit 30.8 % (35.3-44.9); Hemoglobin 10.3 g/dL (11.5-15.4); Immature Granulocytes % 0.7 % (0-4); Lymphocytes # 0.7 K/mcL (0.6-4.6); Lymphocytes % 4.9 %; Mean Corpuscular HGB Conc 33.4 g/dL (31.6-35.5); Mean Corpuscular Volume 92.8 fL (83.0-100.0); Mean Platelet Volume 9.7 fL (9.4-12.4); Monocytes # 0.6 K/mcL (0.0-1.3); Neutrophils # 12.4 K/mcL (1.6-8.9); Platelet Count 387 K/mcL (140-400); Red Blood Count 3.32 M/mcL (3.82-4.97); Red Cell Distribution Width 13.9 % (11.5-14.5); Segmented Neutrophils % 90.2 %; White Blood Count 13.8 K/mcL (4.3-11.1)
[2020-01-12 06:01] LABS: BUN/Creatinine Ratio 27 (6-26); Blood Urea Nitrogen 12 mg/dL (6-20); Calcium 8.7 mg/dL (8.6-10.3); Carbon Dioxide 22 mEq/L (23-29); Chloride 103 mEq/L (98-107); Glucose 186 mg/dL (70-105); Osmolality,Calculated 281 (280-300); Potassium 3.6 mEq/L (3.5-5.1); Sodium 133 mEq/L (136-145); eGFR For African Americans > 60 (> 60); eGFR For Non-African Americans > 60 (> 60)
[2020-01-12 07:14] VITALS: BP 154/90
[2020-01-12] MEDS: Budesonide/Formoterol 160/4.5 1 PUFF INH IH SCH (07:48)
[2020-01-12] MEDS: ALPRAZolam 1 MG TABLET PO SCH (08:36)
[2020-01-12] MEDS: Gabapentin 400 MG CAPSULE PO SCH (08:36)
[2020-01-12] MEDS: predniSONE 20 MG TABLET PO SCH (08:36)
[2020-01-12] MEDS: Famotidine 20 MG TABLET PO SCH (08:36)
[2020-01-12] MEDS: Insulin LISPRO 300 UNITS/3 ML VIAL SQ SCH (08:37)
[2020-01-12] MEDS: Piperacillin/Tazobactam 3.375 GM in 0.9 % Sodium Chloride Mini Bag 100 ML IVPB SCH (08:37)
[2020-01-12] MEDS: polyethylene glycoL 3350 17 GM POWD.PACK PO SCH (08:37)
== END 2020-01-12 11:39 | disposition home or self-care (01) | DRG 177 ==
LOC: EMEROOARM 09:42 → 3ANU 09:42 → SUATTDRO 15:33 → 3ANU 16:20
PROVIDERS: ADMIT Internal Medicine; ATTEND Internal Medicine